=== PATIENT | female | born 1955 | race African-American/Black ===

== ENCOUNTER 2016-12-24 17:23 | Inpatient (IN) | payer MEDICAID, OTHER ==
[~2016-12-24] VITALS: Ht 162.6 cm; Wt 90.7 kg
[~2016-12-24 17:23] MED LIST: APAP PO; ATROVENT 00.5 MG/3 M INH; AZTREONAM1 GM IJ; BENADRYL50 MG PO; BUTALBITAL PO; COZAAR50 MG PO; CYCLOBENZAPRINE10 M7 PO; DILAUDID2 MG PO; DULCOLAX10 MG RC; ELIQUIS5 MG PO; FLONASE NASAL50 MCG NS; LIPITOR20 MG PO; LOPRESSOR50 MG PO; NITRO DUR TD; PEPCID20 MG PO; PROVENTIL2.5 MG/3 M INH; REGLAN10 MG PO; SYNTHROID0.075 MG PO; VALIUM10 MG PO; XARELTO STARTER20 MG PO; [UNRECOGNIZED DRUG - OTHER] PO
[2016-12-24 17:37] VITALS: BP 183/117
--- NOTE | 2016-12-24 20:03 | NUR ---
BIB WHEELCHAIR TO ER BED 2
--- NOTE | 2016-12-24 20:05 | NUR ---
61 Y/O C/O CHEST/BACK PAIN X 3 DAYS ON AND OFF. PT HAS A MANDY AND GTUBE. C/O COUGH WITH YELLOWISH MUCOUS X 3 DAYS WELL. DENIES ANY FEVER. 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 ER MD NOTIFIED.
[2016-12-24] MEDS ORDERED: NITROGLYCERIN 2% 1 GM PKT TP ONE (20:25)
[2016-12-24] MEDS ORDERED: ASPIRIN 325 MG TAB PO ONE (20:25)
[2016-12-24] MEDS ORDERED: HYDROmorphone 1 MG/ML AMP IVP ONE (20:25)
[2016-12-24] MEDS ORDERED: ENALAPRILAT 2.5 MG/2 ML VIAL IVP ONE (20:45)
--- NOTE | 2016-12-24 21:29 | NUR ---
OBTAINED SPUTUM SAMPLE AND SENT TO LAB
[2016-12-24] MEDS ORDERED: HYDROmorphone 1 MG/ML AMP IM ONE (21:30)
--- NOTE | 2016-12-24 21:40 | NUR ---
UNABLE TO START AN IV LINE ON PATIENT AFTER 4 TRIES. PER ER OK TO TRANSFER PT WITHOU IV, CENTRAL LINE WILL BE INITIATED ON FLOOR.
[2016-12-24] MEDS: NACL 0.9% 1,000 ML IV SCH (22:16)
[2016-12-24] MEDS ORDERED: HYDROcodone/APAP 5/325 MG 1 TAB TAB PO PRN (22:20)
[2016-12-24] MEDS ORDERED: ONDANSETRON 4 MG/2 ML VIAL IVP PRN (22:20)
[2016-12-24] MEDS ORDERED: HYDROmorphone 1 MG/ML AMP IVP PRN (22:20)
[2016-12-24] MEDS ORDERED: ALBUTEROL 0.083% 2.5 MG/3 ML NEBU INH PRN (22:25)
[2016-12-24] MEDS ORDERED: BISACODYL 10 MG SUPP RC PRN (22:25)
[2016-12-24] MEDS ORDERED: FLUTICASONE NASAL 50 MCG/ACTUATION 16 GM BTL NS PRN (22:25)
[2016-12-24] MEDS ORDERED: SIMETHICONE 40 MG/0.6 ML PO SCH (22:25)
[2016-12-24] MEDS ORDERED: APAP/BUTAL/CAFF 325/50/40 MG 1 TAB PO PRN (22:25)
[2016-12-24] MEDS ORDERED: IPRATROPIUM 0.02% 0.5 MG/2.5 ML NEBU INH PRN (22:25)
[2016-12-24] MEDS ORDERED: diphenhydrAMINE 50 MG CAP PO PRN (22:25)
--- NOTE | 2016-12-24 22:28 | NUR ---
Patient will be admitted to care of [facility]. Admited to TELEMETRY. Will go to room 112B. Belongings list completed. Report to ROCIO HEALY.
[2016-12-24] MEDS ORDERED: EMLA TP (22:33)
[2016-12-24] MEDS ORDERED: DEXILANT60 MG PO (22:33)
[2016-12-24] MEDS ORDERED: DIOVAN160 M1 PO (22:33)
[2016-12-24] MEDS ORDERED: ISOSORBIDE MONO30 MG PO (22:33)
[2016-12-24 23:00] VITALS: BP 140/70
--- NOTE | 2016-12-24 23:00 | NUR ---
RECEIVED PT FROM ER VIA [facility] PT IS AAOX4 AMBULATORY DENIES ANY CHEST PAIN ON ADMISSION TRACH TO RA 100% O2 SAT SKIN IS INTACT , DRYNESS, LIGHT REDNESS AROUND G TUBE G TUBE ZERO RESIDUAL NOT IV ACCESS MRSA NARES TAKEN AND SENT TO LAB ON TELEMETRY SR PT IS ORIENTED TO THE FLOOR CALL LIGHT WITHIN REACH ', PT COOPERATIVE INITIAL ASSESSMENT DONE
--- NOTE | 2016-12-24 23:19 | NUR ---
RCFaiza'D PT FROM ER. PT HAS PORTEX 8 UNCUFFED. PT IS ON ROOM AIR SAT 100. WILL CONTINUE TO MONITOR. Addendum: 12/24/16 at 2322 by Benigno Montilla RT RN AT BEDSIDE
[2016-12-25] VITALS: BP 140/70
--- NOTE | 2016-12-25 02:00 | NUR ---
PT ON TELMETRY SR TRACH AT ROOM AIR NOT SOB NOTED REPOSITIONED Q2H
[2016-12-25 04:00] VITALS: BP 90/53
--- NOTE | 2016-12-25 04:00 | NUR ---
SPONGE BATH GIVEN, LINEN CHANGED AMBULATES TO THE RESTROOM VOIDING WELL ON TELE SR
[2016-12-25] MEDS: LEVOTHYROXINE 0.075 MG TAB PO SCH (05:33)
--- NOTE | 2016-12-25 05:43 | NUR ---
URINE SENT TO LAB, PT REFUSED TO SING CONSENT FOR PICC LINE
--- NOTE | 2016-12-25 06:28 | NUR ---
PT REFUSED TO SING INSERTION PICC FOURDRINIER MACHINE TENDER WILL BE NOTIFY
--- NOTE | 2016-12-25 07:21 | NUR ---
RECEIVED PT FROM ROCIO HEALY ASLEEP BUT EASILY AWAKENED. AAOX4, WITH TRACH AND GTUBE, NO IV ACCESS AT THIS TIME. NO S/S OF RESPIRATORY DISTRESS OR DISCOMFORT. INITIAL ASSESSMENT DONE, SAFETY PRECAUTIONS ENFORCED, PT VERBALIZED UNDERSTANDING. CALL LIGHT WITHIN REACH, WILL CONTINUE TO MONITOR.
[2016-12-25 08:00] VITALS: BP 128/69
[2016-12-25] MEDS: FAMOTIDINE 20 MG TAB PO SCH ×2 (08:27→21:56)
[2016-12-25] MEDS: DIAZEPAM 5 MG TAB PO SCH ×2 (08:27→21:57)
[2016-12-25] MEDS: ASPIRIN 81 MG TAB.CHEW PO SCH (08:28)
[2016-12-25] MEDS ORDERED: LISINOPRIL 10 MG TAB PO SCH (09:00)
[2016-12-25] MEDS ORDERED: APIXABAN 2.5 MG TAB PO SCH (09:00)
[2016-12-25] MEDS ORDERED: LOSARTAN 50 MG TAB PO SCH (09:00)
[2016-12-25] MEDS ORDERED: CYCLOBENZAPRINE 10 MG TAB PO SCH (09:00)
[2016-12-25] MEDS ORDERED: METOCLOPRAMIDE 10 MG TAB PO SCH (09:00)
--- NOTE | 2016-12-25 09:00 | NUR ---
DUE MEDS GIVEN, PT TOLERATED WELL. ALL NEEDS MET AT THIS TIME. CALL LIGHT WITHIN REACH. WILL CONTINUE TO MONITOR.
--- NOTE | 2016-12-25 09:19 | NUR ---
PATIENT HAS BEEN SCREENED AND CATEGORIZED MODERATE NUTRITION RISK. PATIENT WILL BE SEEN WITHIN 3-5 DAYS OF ADMISSION. 12/27/16-12/29/[address]
[2016-12-25] MEDS: NACL 0.9% 1,000 ML IV SCH ×2 (09:23→20:30)
[2016-12-25] MEDS: METOPROLOL 50 MG TAB PO SCH ×2 (09:29→21:00)
[2016-12-25] MEDS: NITROGLYCERIN 0.4 MG/HR PATCH TD SCH (09:36)
[2016-12-25] MEDS ORDERED: SIMETHICONE 40 MG/0.6 ML PO PRN (11:33)
[2016-12-25 12:00] VITALS: BP 115/77
--- NOTE | 2016-12-25 12:00 | NUR ---
PT AWAKE SITTING ON BED WATCHING TV. NO S/S OF RESPIRATORY DISCOMFORT. ALL NEEDS MET AT THIS TIME. CALL LIGHT WITHIN REACH, WILL CONTINUE TO MONITOR.
--- NOTE | 2016-12-25 13:10 | NUR ---
DR POWERS IN THE ROOM WITH THE PT
[2016-12-25] MEDS: LIDOCAINE/PRILOCAINE 2.5% 30 GM TUBE TP SCH ×2 (13:49→16:17)
[2016-12-25] MEDS: HYDROmorphone 2 MG TAB PO PRN (14:05)
--- NOTE | 2016-12-25 15:13 | NUR ---
DR SANDERS IS IN NURSES STATION.
[2016-12-25] MEDS: ALBUTEROL SULFATE/IPRATROPIU 3 ML SOL IH SCH ×3 (15:15→22:58)
[2016-12-25 16:00] VITALS: BP 114/49
--- NOTE | 2016-12-25 16:00 | NUR ---
VS TAKEN, PT IS STABLE. NO S/S OF RESPIRATORY DISCOMFORT. PT AWAKE WATCHING TV RESTING COMFORTABLY. CALL LIGHT WITHIN REACH, WILL CONTINUE TO MONITOR.
--- NOTE | 2016-12-25 17:30 | NUR ---
PT ASLEEP RESTING COMFORTABLY ON BED BUT EASILY AWAKEN. TRACH CARE DONE BY RT. ALL NEEDS MET AT THIS TIME. CALL LIGHT WITHIN REACH, WILL CONTINUE TO MONITOR.
--- NOTE | 2016-12-25 19:07 | NUR ---
ENDORSED PT TO ROCIO HEALY FOR CONTINUITY OF CARE IN STABLE CONDITION.
--- NOTE | 2016-12-25 19:10 | NUR ---
RECEIVED PT FROM YAN RN PT AAOX4 ON TRACH AT ROOM AIR, ON TELEMETRY SR , G TUBE IN PLACE PINK AROUND THE G TUBE NOT IV ACCESS AND PT REFUSED PICC LINE, NOT SOB NOTED, RESPIRATORY THERAPY IS HERE AND ASSIST THE PT
[2016-12-25] MEDS: BUDESONIDE 0.5 MG/2 ML NEBU INH SCH (19:41)
[2016-12-25 20:00] VITALS: BP 110/63
[2016-12-25] MEDS: VALSARTAN 80 MG TAB PO SCH (21:00)
[2016-12-25] MEDS: ATORVASTATIN 20 MG TAB PO SCH (21:51)
[2016-12-25] MEDS ORDERED: CLINDAMYCIN 600 MG in DEXTROSE 5% 50 ML IV SCH (22:00)
--- NOTE | 2016-12-25 22:16 | NUR ---
PT SLEEPING , ON TELE SR NTO SOB NOTED
[2016-12-25] MEDS ORDERED: LEVOFLOXACIN 500 MG TAB PO SCH (22:20)
[2016-12-25] MEDS ORDERED: CLINDAMYCIN 150 MG CAP PO SCH (22:20)
[2016-12-25] MEDS: CLINDAMYCIN 150 MG CAP PO SCH (22:28)
[2016-12-25] MEDS ORDERED: LEVOFLOXACIN 500 MG/D5W PREMIX 100 ML IV SCH (23:00)
[2016-12-26] VITALS: BP 107/66
--- NOTE | 2016-12-26 00:43 | NUR ---
REPOSITIONED Q2H ON TELE SR SLEEPING
[2016-12-26] MEDS: ALBUTEROL SULFATE/IPRATROPIU 3 ML SOL IH SCH ×6 (02:44→23:37)
[2016-12-26 04:00] VITALS: BP 109/68
--- NOTE | 2016-12-26 04:00 | NUR ---
SPONGE BATH GIVEN , LINEN CHANGED ON TELEMETRY SR, TRACH TO ROOM AIR NOT SOB NOTED
[2016-12-26] MEDS: LEVOTHYROXINE 0.075 MG TAB PO SCH (05:18)
[2016-12-26] MEDS: PANTOPRAZOLE 40 MG TABEC PO SCH (05:20)
[2016-12-26] MEDS: CLINDAMYCIN 150 MG CAP PO SCH ×2 (05:22→20:35)
--- NOTE | 2016-12-26 06:09 | NUR ---
VOIDING WELL AND TOLERATED WELL PO MED , ON TELEMETRY SR
--- NOTE | 2016-12-26 07:10 | NUR ---
RECEIVED REPORT AT PT BEDSIDE. PT RESTING IN BED. C/O HEADACHE, WILL MEDICATE ORDERED. DENIES FEELING SOB. CALL LIGHT WITHIN REACH. AAOX4. HAS TRACH TO ROOM AIR. HAS G-TUBE, DRESSING DRY AT THIS TIME. WILL CONTINUE TO MONITOR.
[2016-12-26] MEDS: BUDESONIDE 0.5 MG/2 ML NEBU INH SCH ×2 (07:11→20:03)
[2016-12-26] MEDS: NACL 0.9% 1,000 ML IV SCH ×2 (07:37→18:44)
[2016-12-26 08:00] VITALS: BP 111/62
[2016-12-26] MEDS: DIAZEPAM 5 MG TAB PO SCH ×2 (08:23→20:34)
[2016-12-26] MEDS: ISOSORBIDE MONONITRATE 30 MG TABER PO SCH (08:24)
[2016-12-26] MEDS: FAMOTIDINE 20 MG TAB PO SCH ×2 (08:24→20:34)
[2016-12-26] MEDS: ASPIRIN 81 MG TAB.CHEW PO SCH (08:25)
[2016-12-26] MEDS: HYDROmorphone 2 MG TAB PO PRN ×2 (08:25→20:45)
[2016-12-26] MEDS: LEVOFLOXACIN 500 MG TAB PO SCH (08:25)
[2016-12-26] MEDS: LIDOCAINE/PRILOCAINE 2.5% 30 GM TUBE TP SCH ×3 (08:32→17:49)
[2016-12-26] MEDS: RIVAROXABAN 10 MG TAB PO SCH (08:34)
[2016-12-26] MEDS: NITROGLYCERIN 0.4 MG/HR PATCH TD SCH (08:34)
[2016-12-26] MEDS: VALSARTAN 80 MG TAB PO SCH ×2 (08:44→21:00)
[2016-12-26] MEDS: METOPROLOL 50 MG TAB PO SCH ×2 (08:44→21:00)
--- NOTE | 2016-12-26 09:00 | NUR ---
PT TOLERATED AM MEDS. PT SEEN BY. DR. DIEZ, PT NOTIFIED MD OF MIGRAINE HEADACHES. MD TO ORDER.
[2016-12-26 12:00] VITALS: BP 103/80
[2016-12-26] MEDS ORDERED: SUMAtriptan 25 MG TAB PO SCH (12:00)
--- NOTE | 2016-12-26 12:08 | NUR ---
PT PLACED ON COOL AEROSOL 28%. WILL CONTINUE TO MONITOR.
--- NOTE | 2016-12-26 13:11 | NUR ---
PT RESTING IN BED. DENIES DISCOMFORT AT THIS TIME. NO S/S OF DISTRESS NOTED. CALL LIGHT WITHIN REACH.
[2016-12-26] MEDS ORDERED: ACETAMINOPHEN 325 MG TAB PO PRN (15:30)
--- NOTE | 2016-12-26 15:37 | NUR ---
HD NURSE AT BEDSIDE. BP 68/36, NO S/S OF DISTRESS. MADE AWARE BY DIALYSIS NURSE, NO NEW ORDERS. Addendum: 12/26/16 at 1609 by Juan Jose Hernandez RN WRONG PATIENT.
[2016-12-26 16:00] VITALS: BP 129/83
[2016-12-26] MEDS: MUPIROCIN 2% OINT 22 GM TUBE TP SCH (16:00)
[2016-12-26] MEDS: CHLORHEXADINE GLUC 2% CLOTH TP SCH (16:00)
--- NOTE | 2016-12-26 17:34 | NUR ---
*PT NOTES* RECEIVED MD ORDER FOR PT EVALUATION. ATTEMPT MADE TO SEE PATIENT AFTER CLEARANCE RECEIVED. PATIENT REFUSED SERVICE DUE TO PELVIC/LOW BACK PAIN. STATED THE MEDICATION DID NOT HELP AND THAT SHE MIGHT "FALL" IF SHE GOT UP AT THIS TIME. DISCUSSED WITH PATIENT THE SIGNIFICANCE/EFFECTS OF PROLONGED BED REST, HOWEVER, ALTHOUGH PATIENT UNDERSTOOD, STILL REFUSED. TYLENOL WAS GIVEN TO PATIENT EARLIER. WILL ATTEMPT NEXT SERVICE DAY. RN AWARE OF OUTCOME/ATTEMPT. PVE.
--- NOTE | 2016-12-26 18:00 | NUR ---
PT RESTING IN BED. ALL NEEDS MET. NO S/S OF ACUTE DISTRESS.
--- NOTE | 2016-12-26 19:18 | NUR ---
ENDORSED PLAN OF CARE TO WHOLESALE PARTS SALESPERSON ROYER AT PT BEDSIDE. NO S/S OF ACUTE DISTRESS NOTED.
--- NOTE | 2016-12-26 19:20 | NUR ---
PT IS CURRENTLY AWAKE ALERT ABLE TO MAKE NEEDS KNOWN.PT DENIES ANY CHEST PAIN OR SOB AT THIS TIME HAS A TRACH AND IS CURRENTLY ON 21% COOL AEROSOL PER RESP THERAPIST DOUGLAS.NEEDS MET AND CALL LIGHT WITHIN REACH.
[2016-12-26 20:00] VITALS: BP 101/68
[2016-12-26] MEDS: ATORVASTATIN 20 MG TAB PO SCH (20:34)
--- NOTE | 2016-12-26 20:35 | NUR ---
I GAVE THE PATIENT HER MEDICATION EXPLAINED WHAT EACH MEDICATION IS FOR.I OFFERED TO CRUSH HER MEDS PT REFUSES PT STATES,"I CAN TAKE MY PILLS AND I TAKE THEM TOGETHER I DON'T TAKE THEM SEPARATELY."I PROVIDED THE PATIENT WITH PLENTY OF WATER AND MADE SURE THAT SHE SWALLOWED ALL HER PILLS.I GAVE HER MORE WATER AND ALSO A CUP OF ICE.FAMILY VISITING PATIENT VERY COMPLIANT THEY WORE GOWNS AND MASKS.WILL CONTINUE TO MONITOR.
--- NOTE | 2016-12-26 22:00 | NUR ---
Patient's Plan of Care was discussed and reviewed with CORRECTIONAL OFFICER CAPTAIN: ROYER ENRIQUEZ
--- NOTE | 2016-12-26 22:56 | NUR ---
I MADE ROUNDS AND CHECKED ON THE PATIENT STATES," IM IS DOING FINE." THEN SHE ASKED FOR MORE ICE CHIPS AND I GAVE HER MORE ICE CHIPS.WILL CONTINUE TO OBSERVE.
--- NOTE | 2016-12-27 00:04 | NUR ---
ROUNDS DONE PT RESTING IN BED PT REQUESTS FOR SLEEPING PILL,MD HILARIO EXCHANGE WILL BE CALLED MESSAGE WILL BE LEFT.
[2016-12-27 00:07] VITALS: BP 116/66
[2016-12-27] MEDS ORDERED: ZOLPIDEM 5 MG TAB PO PRN (00:15)
--- NOTE | 2016-12-27 02:56 | NUR ---
PT SLEEPING IN BED IN NO DISTRESS WILL CONTINUE TO MONITOR.CALL LIGHT WITHIN REACH.
[2016-12-27] MEDS: ALBUTEROL SULFATE/IPRATROPIU 3 ML SOL IH SCH ×6 (03:46→23:00)
[2016-12-27 04:00] VITALS: BP 96/58
--- NOTE | 2016-12-27 04:00 | NUR ---
PT SLEEPING IN BED DENIES PAIN AND DISCOMFORT.CALL LIGHT WITHIN REACH.
[2016-12-27] MEDS: NACL 0.9% 1,000 ML IV SCH ×2 (05:51→16:58)
[2016-12-27] MEDS: CLINDAMYCIN 150 MG CAP PO SCH ×3 (06:28→21:00)
[2016-12-27] MEDS: PANTOPRAZOLE 40 MG TABEC PO SCH (06:33)
[2016-12-27] MEDS: LEVOTHYROXINE 0.075 MG TAB PO SCH (06:33)
--- NOTE | 2016-12-27 06:35 | NUR ---
PT TOOK HER MEDICATIONS AND I MADE SURE SHE SWALLOWED THEM,PT UPSET PT STATES,"I FEEL LIKE IM BEING TORTURED EVERYTIME THEY COME TO PRICK ME WITH THE NEEDLES THEY CAN NEVER FIND A VEIN."PT STATES,"PLEASE LEAVE ME ALONE AND GO AWAY I WANT TO CONTINUE TO GET SOME SLEEP."CALL LIGHT WITHIN REACH.NO COMPLAINS OF PAIN OR DISCOMFORT THIS MORNING.
--- NOTE | 2016-12-27 07:17 | NUR ---
PT STABLE REPORT ENDORSED TO ROCIO GONZALEZ.
--- NOTE | 2016-12-27 07:18 | NUR ---
PT ALERT AND ORIENTED X4. BREATHING EVENLY AND UNLABORED. NO SIGNS OF ACUTE DISTRESS. SKIN IS WARM AND DRY. NO SIGNS OF ANY BOWEL/BLADDER DISCOMFORT. DENIES OF ANY PAIN OR DISCOMFORT AT THIS TIME. ALL NEEDS ATTENDED, CONTACT AND SAFETY PRECAUTIONS MAINTAINED. CALL LIGHT WITHIN REACH. NO IV ACCESS PER MULTIPLE DRUM SANDER NURSE MD IS AWARE. PT REFUSED REINSERTION OR PICC PLACEMENT RISKS AND BENEFITS EXPLAINED. PT VERBALIZED UNDERSTANDING.
[2016-12-27] MEDS: BUDESONIDE 0.5 MG/2 ML NEBU INH SCH ×2 (07:57→20:28)
[2016-12-27 08:00] VITALS: BP 111/73
[2016-12-27] MEDS: ASPIRIN 81 MG TAB.CHEW PO SCH (09:00)
[2016-12-27] MEDS: VALSARTAN 80 MG TAB PO SCH ×2 (09:00→21:00)
[2016-12-27] MEDS ORDERED: MUPIROCIN 2% OINT 22 GM TUBE TP SCH (09:00)
[2016-12-27] MEDS: ISOSORBIDE MONONITRATE 30 MG TABER PO SCH (09:00)
[2016-12-27] MEDS: DIAZEPAM 5 MG TAB PO SCH ×2 (09:00→21:00)
[2016-12-27] MEDS: FAMOTIDINE 20 MG TAB PO SCH ×2 (09:00→21:00)
[2016-12-27] MEDS: METOPROLOL 50 MG TAB PO SCH ×2 (09:00→21:00)
[2016-12-27] MEDS: LEVOFLOXACIN 500 MG TAB PO SCH (09:00)
[2016-12-27] MEDS: RIVAROXABAN 10 MG TAB PO SCH (09:00)
[2016-12-27] MEDS: NITROGLYCERIN 0.4 MG/HR PATCH TD SCH (09:31)
[2016-12-27] MEDS: LIDOCAINE/PRILOCAINE 2.5% 30 GM TUBE TP SCH ×3 (09:31→17:35)
--- NOTE | 2016-12-27 10:00 | NUR ---
PT REFUSING PO MEDS, RISKS AND BENEFITS EXPLAINED. MADE AWARE.
[2016-12-27 12:00] VITALS: BP 114/63
--- NOTE | 2016-12-27 13:20 | NUR ---
MD SPOKE WITH PT ABOUT NON-COMPLIANCE ON IV INSERTION AND OR PICC LINE INSERTION. RISKS AND BENEFITS EXPLAINED BY MD AT BEDSIDE. PT NEEDS REINFORCEMENT AND STILL REFUSED PROCEDURE.
--- NOTE | 2016-12-27 13:40 | NUR ---
FAXED [facility] FOR A COPY OF MEDICAL RECORDS. PT GAVE CONSENT TO OBTAIN.
[2016-12-27 16:00] VITALS: BP 132/85
[2016-12-27] MEDS: MUPIROCIN 2% OINT 22 GM TUBE TP SCH (16:00)
[2016-12-27] MEDS: CHLORHEXADINE GLUC 2% CLOTH TP SCH (16:00)
--- NOTE | 2016-12-27 18:20 | NUR ---
WAS SEEN BY DR. MAHAN, SPOKE WITH PT AT BEDSIDE ALONGSIDE WITH DR. DEXTER PER DR. MAHAN, PT DOES NOT REQUIRE ANTIBIOTICS AT THIS TIME. MAY D/C ON TRANSIT PLANNING MANAGER STANDPOINT PT IS AWARE. CONTINUE TO MONITOR.
--- NOTE | 2016-12-27 18:45 | NUR ---
PT REQUESTED TO BE DISCHARGED TODAY. DR DEXTER MADE AWARE, VERBALIZED PT CAN SIGN AMA IF SHE WANTS TO GO HOME. PT REFUSED TO SIGN AMA.
--- NOTE | 2016-12-27 19:00 | NUR ---
UNABLE TO CONTACT DR. DEXTER TO BE MADE AWARE PT REFUSED TO SIGN AMA. REQUESTS TO BE DISCHARGE TODAY. PAGED DR. HILARIO, AWAITING FOR RESPONSE.
--- NOTE | 2016-12-27 19:03 | NUR ---
PT AWAKE AND RESPONSIVE, NO SIGNS OF ACUTE DISTRESS. ENDORSED TO ONCOMING FIRE PREVENTION OFFICER NURSE FOR CONTINUITY OF CARE.
--- NOTE | 2016-12-27 19:10 | NUR ---
DR. DIEZ BEAM DYER RECESSED VAT FOR DR. BOSS. AWAITING FOR RESPONSE. ENDORSED TO RISK CONTROL FIELD REPRESENTATIVE NURSE.
--- NOTE | 2016-12-27 19:20 | NUR ---
RECEIVED REPORT FROM DAY RN AT BEDSIDE. PATIENT IS AAO X4. PATIENT HAS TRACH WITH 21% O2. PATIENT SKIN INTACT. PER DAY RN, PATIENT WANTED TO BE DISCHARGED TODAY OR WAS GIVEN OPTION TO SIGN OUT AMA, PATIENT STATED SHE WILL STAY THE NIGHT. PATIENT APPEARS TO BE UPSET, PATIENT HAS NO IV ACCESS AND STATED SHE DID NOT WANT ANYONE TO POKE HER ANYMORE AND REFUSED TO HAVE A LINE INSERTED. DISCUSSED PLAN OF CARE WITH PATIENT, PATIENT VERBALIZED UNDERSTANDING. CALL LIGHT WITHIN REACH. WILL CONTINUE TO MONITOR.
[2016-12-27 20:00] VITALS: BP 133/94
[2016-12-27] MEDS: ATORVASTATIN 20 MG TAB PO SCH (21:00)
--- NOTE | 2016-12-27 21:30 | NUR ---
PATIENT REFUSED MEDS BECAUSE SHE STATED THAT SHE CANNOT SWALLOW WELL BECAUSE HER TRACH IS TOO TIGHT AND SHE HAS NOT BEEN ABLE TO EAT MUCH TODAY. PATIENT CONTINUED TO THEN COVER HER HEAD WITH HER BLANKETS. CALL LIGHT WITHIN REACH. WILL CONTINUE TO MONITOR.
--- NOTE | 2016-12-27 23:00 | NUR ---
PATIENT SLEEPING, NO SOB OR SIGN OF DISTRESS, CALL LIGHT WITHIN REACH. WILL CONTINUE TO MONITOR.
[2016-12-28] VITALS: BP 113/61
--- NOTE | 2016-12-28 01:32 | NUR ---
PATIENT SLEEPING, NO SOB OR SIGN OF DISTRESS, CALL LIGHT WITHIN REACH. WILL CONTINUE TO MONITOR. VITAL SIGNS STABLE.
--- NOTE | 2016-12-28 02:40 | NUR ---
PATIENT SLEEPING, NO SOB OR SIGN OF DISTRESS, CALL LIGHT WITHIN REACH. WILL CONTINUE TO MONITOR.
[2016-12-28] MEDS: ALBUTEROL SULFATE/IPRATROPIU 3 ML SOL IH SCH ×6 (03:58→23:54)
[2016-12-28 04:00] VITALS: BP 104/54
[2016-12-28] MEDS: NACL 0.9% 1,000 ML IV SCH ×2 (04:05→15:12)
--- NOTE | 2016-12-28 04:30 | NUR ---
PATIENT SLEEPING, VITAL SIGNS STABLE, NO SOB OR SIGN OF DISTRESS, CALL LIGHT WITHIN REACH. WILL CONTINUE TO MONITOR.
[2016-12-28] MEDS: CLINDAMYCIN 150 MG CAP PO SCH ×2 (05:00→13:00)
[2016-12-28] MEDS: PANTOPRAZOLE 40 MG TABEC PO SCH (06:30)
[2016-12-28] MEDS: LEVOTHYROXINE 0.075 MG TAB PO SCH (06:30)
--- NOTE | 2016-12-28 06:30 | NUR ---
PATIENT REFUSED MORNING MEDS, STATES BECAUSE SHE CANT SWALLOW, CALL LIGHT WITHIN REACH. WILL CONTINUE TO MONITOR.
[2016-12-28] MEDS: BUDESONIDE 0.5 MG/2 ML NEBU INH SCH ×2 (07:02→18:39)
--- NOTE | 2016-12-28 07:25 | NUR ---
ENDORSED PATIENT TO DAY RN AT BEDSIDE, PATIENT IN STABLE CONDITION.
--- NOTE | 2016-12-28 07:26 | NUR ---
RECEIVED REPORT FROM ROCIO MACK. PT IS SLEEPING BUT EASILY AWAKEN, AAO X4, SKIN INTACT, NO IV ACCESS, INITIAL ASSESSMENT DONE, NO S/S OF RESPIRATORY DISTRESS OR DISCOMFORT NOTED, DISCUSSED PLAN OF CARE, PT VERBALIZED UNDERSTANDING, SAFETY/FALL PRECAUTION ENFORCED, CALL LIGHT WITHIN REACH, WILL CONTINUE TO MONITOR.
--- NOTE | 2016-12-28 07:33 | NUR ---
ENDORSED PT TO ROCIO HEALY FOR CONTINUITY OF CARE. PT IS STABLE AT THIS TIME. Addendum: 12/28/16 at 1940 by Elías Mckeon RN WRONG TIME.
[2016-12-28 07:57] VITALS: BP 93/60
[2016-12-28] MEDS: METOPROLOL 50 MG TAB PO SCH (09:00)
[2016-12-28] MEDS: FAMOTIDINE 20 MG TAB PO SCH (09:00)
[2016-12-28] MEDS: NITROGLYCERIN 0.4 MG/HR PATCH TD SCH (09:00)
[2016-12-28] MEDS: ASPIRIN 81 MG TAB.CHEW PO SCH (09:00)
[2016-12-28] MEDS: VALSARTAN 80 MG TAB PO SCH (09:00)
[2016-12-28] MEDS: RIVAROXABAN 10 MG TAB PO SCH (09:00)
[2016-12-28] MEDS: DIAZEPAM 5 MG TAB PO SCH (09:00)
[2016-12-28] MEDS: ISOSORBIDE MONONITRATE 30 MG TABER PO SCH (09:00)
[2016-12-28] MEDS: LIDOCAINE/PRILOCAINE 2.5% 30 GM TUBE TP SCH ×3 (09:17→16:17)
--- NOTE | 2016-12-28 09:18 | NUR ---
DUE MEDS NOT GIVEN, PT REFUSED MEDS, PT STATED THAT SHE IS UNABLE TO SWALLOW, ALL NEEDS MET AT THIS TIME, CALL LIGHT WITHIN REACH, WILL CONTINUE TO MONITOR.
--- NOTE | 2016-12-28 10:51 | NUR ---
PT NOTE 953 MEDICAL CHART REVIEWED. Pt WAS CLEARED FOR PT PER RN. Pt REFUSED TO PARTICIPATE W/PT EVAL, STATES THAT SHE IS IN PAIN DUE TO FIBROMYALGIA AND COULD NOT SWALLOW PILLS, NO ACCESS FOR IV EITHER. Pt WAS EDUCATED ON BENEFITS OF PHYSICAL THERAPY, ENCOURAGED TO AT LEAST PARTICIPATE IN BED MOBILITY OR SITTING EOB; Pt STATES, "YOU DON'T UNDERSTAND BECAUSE YOU DON'T HAVE WHAT I HAVE." RN NOTIFIED REGARDING REFUSAL. WILL TRY TO FOLLOW UP TOMORROW. PVE(1)
--- NOTE | 2016-12-28 11:30 | NUR ---
SPEECH THERAPIST AT BEDSIDE SWALLOW EVAL IN PROGRESS.
--- NOTE | 2016-12-28 11:44 | NUR ---
HEATING AND REFRIGERATION INSPECTOR note (bedside swallow evaluation completed) 10:45-11:30. Bedside swallow evaluation completed, please see report for details. HEATING AND REFRIGERATION INSPECTOR provided pt with education regarding purpose of evaluation and rationale for recommendations at this time. Pt verbalized understanding and agreement with recommendations at this time. Recommend: 1) NPO (oral cares only) 2) consider alternative method(s) of nutrition/hydration/medication, as appropriate (pt has G-tube in place) 3) no further HEATING AND REFRIGERATION INSPECTOR intervention indicated at this time. Physician to reorder HEATING AND REFRIGERATION INSPECTOR intervention once pt's throat inflamation has subsided and pt able to swallow her saliva comfortably/easily, as appropriate. HEATING AND REFRIGERATION INSPECTOR d/w RN (Elías) following evaluation. G-codes: [id number] [id number] TIMUR NOMS level 1: pt is not able to swallow anything safely by mouth at this time.
[2016-12-28 12:00] VITALS: BP 121/80
--- NOTE | 2016-12-28 13:00 | NUR ---
DUE MED NOT GIVEN DUE TO PT NOT ABLE TO SWALLOW. NO S/S OF RESPIRATORY DISCOMFORT, CALL LIGHT WITHIN REACH, WILL CONTINUE TO MONITOR.
[2016-12-28] MEDS ORDERED: APAP/BUTAL/CAFF 325/50/40 MG 1 TAB GT PRN (14:25)
[2016-12-28] MEDS ORDERED: HYDROcodone/APAP 5/325 MG 1 TAB TAB GT PRN (14:25)
[2016-12-28] MEDS ORDERED: SIMETHICONE 40 MG/0.6 ML GT PRN (14:25)
[2016-12-28] MEDS ORDERED: ACETAMINOPHEN 325 MG TAB GT PRN (14:25)
[2016-12-28] MEDS ORDERED: ZOLPIDEM 5 MG TAB GT PRN (14:25)
[2016-12-28 16:00] VITALS: BP 120/76
[2016-12-28] MEDS: MUPIROCIN 2% OINT 22 GM TUBE TP SCH (16:15)
[2016-12-28] MEDS: CHLORHEXADINE GLUC 2% CLOTH TP SCH (16:16)
--- NOTE | 2016-12-28 17:30 | NUR ---
XRAY OF ABDOMEN FOR GTUBE PLACEMENT DONE, PT TOLERATED WELL. NO S/S OF RESPIRATORY DISTRESS OR DISCOMFORT. ALL NEEDS MET AT THIS TIME, CALL LIGHT WITHIN REACH, WILL CONTINUE TO MONITOR.
[2016-12-28] MEDS: HYDROmorphone 2 MG TAB GT PRN (18:44)
--- NOTE | 2016-12-28 19:33 | NUR ---
ENDORSED PT TO ROCIO HEALY FOR CONTINUITY OF CARE. PT IS STABLE AT THIS TIME.
--- NOTE | 2016-12-28 19:34 | NUR ---
RECEIVED PT FROM YAN RN PT IS AAOX4 ON T BAR NOT SOB NOTED, ON TELEMETRY SR G TUBE PATENT, REPOSILTIONED INITIAL ASSESSMENT DONE
[2016-12-28 20:00] VITALS: BP 111/93
[2016-12-28] MEDS ORDERED: ATORVASTATIN 20 MG TAB GT SCH (21:00)
[2016-12-28] MEDS: VALSARTAN 80 MG TAB GT SCH (21:00)
[2016-12-28] MEDS: METOPROLOL 50 MG TAB GT SCH (21:00)
[2016-12-28] MEDS: CLINDAMYCIN 150 MG CAP GT SCH (21:35)
[2016-12-28] MEDS: DIAZEPAM 5 MG TAB GT SCH (21:37)
[2016-12-28] MEDS: FAMOTIDINE 20 MG TAB GT SCH (21:38)
--- NOTE | 2016-12-28 22:58 | NUR ---
AFTER KLPAIN MEDIC GIVENK PT SLEEP QUIET NOT DISTRESS NOTED
[2016-12-29] VITALS: BP 117/72
[2016-12-29] MEDS: HYDROmorphone 2 MG TAB GT PRN ×3 (00:37→14:57)
--- NOTE | 2016-12-29 01:13 | NUR ---
PT ON CLOSE MONITORING ON T BAR COLLAR ON TELEMETRY SR REPOSITIONED Q2H NOT DISTRESS NOTED GETTING SLEEP AFTER PAIN MEDIC GIVEN.
[2016-12-29] MEDS: NACL 0.9% 1,000 ML IV SCH ×2 (02:19→13:26)
[2016-12-29] MEDS: ALBUTEROL SULFATE/IPRATROPIU 3 ML SOL IH SCH ×4 (03:49→16:10)
[2016-12-29 04:00] VITALS: BP 111/74
--- NOTE | 2016-12-29 04:00 | NUR ---
SPONGE BATH GIVEN LINEN CHANGED, ON TELEMETRY SR REPOSITIONED 28% T BAR COLLAR
[2016-12-29] MEDS: CLINDAMYCIN 150 MG CAP GT SCH ×2 (04:44→12:27)
[2016-12-29] MEDS: PANTOPRAZOLE 40 MG TABEC PO SCH (05:35)
--- NOTE | 2016-12-29 06:01 | NUR ---
MEDIC GIVEN ORDER PT REMAIN STABLE NOT DISTRESS NOTED ON TELEMETRY SR
[2016-12-29] MEDS ORDERED: LEVOTHYROXINE 0.075 MG TAB GT SCH (06:30)
--- NOTE | 2016-12-29 07:00 | NUR ---
PT AAOX4 AMBULATORY AND FOUND SITTING ON THE FLOOR NOT SIGNS OF FALLING SHE HELP TO BE SITTING ON THE CHAIR AND WE EXPLAIN THE IMPORTANT TO CALL THE NURSE TO BE ASSISTED , CHARGE NURSE AWARE AND DR HILARIO WAS NOTIFY PT IS ENDORSED TO YAN CHAN FOR CONTINUITY OF CARE
--- NOTE | 2016-12-29 07:10 | NUR ---
PT IS NOT COMPLAINT WITH THE TREATMENT VERBALIZED SHE DOES NOT WANT G TUBE FEEDING, DR HILARIO WAS NOTIFY
--- NOTE | 2016-12-29 07:12 | NUR ---
dr mattson is here making round with residents and see the pt on stable condition
--- NOTE | 2016-12-29 07:20 | NUR ---
RECEIVED PT FROM ROCIO HEALY AWAKE LYING ON BED, NO S/S OF RESPIRATORY DISTRESS OR DISCOMFORT. AAOX4, WITH TRACHEOSTOMY INTACT, GTUBE PATENT AND INTACT. INITIAL ASSESSMENT DONE. DISCUSSED PLAN OF CARE, PT VERBALIZED UNDERSTANDING. DR HILARIO IN THE ROOM TO SEE THE PT. CALL LIGHT WITHIN REACH, WILL CONTINUE TO MONITOR.
[2016-12-29] MEDS: BUDESONIDE 0.5 MG/2 ML NEBU INH SCH (07:24)
--- NOTE | 2016-12-29 07:31 | NUR ---
CHANGE INNER CANNULA PORTEX 8 TRACH TIE GAUZE WITHOUT INCIDENT PT ON 28 COOL AEROSOL DRAIN H20 BAG PT TRACH PORTEX 8 IS SECURE PT REFUSES SX
[2016-12-29 08:00] VITALS: BP 110/76
[2016-12-29] MEDS ORDERED: DIOVAN160 M1 GT/PO (08:23)
[2016-12-29] MEDS ORDERED: SYNTHROID0.075 MG GT/PO (08:23)
[2016-12-29] MEDS ORDERED: DILAUDID2 MG GT/PO (08:23)
[2016-12-29] MEDS ORDERED: VALIUM10 MG GT/PO (08:23)
[2016-12-29] MEDS ORDERED: XARELTO STARTER20 MG GT/PO (08:23)
[2016-12-29] MEDS ORDERED: PROTONIX40 MG/Pack PO (08:23)
[2016-12-29] MEDS ORDERED: ISORDIL10 M1 GT/PO (08:24)
[2016-12-29] MEDS: NITROGLYCERIN 0.4 MG/HR PATCH TD SCH (09:00)
[2016-12-29] MEDS ORDERED: ASPIRIN 81 MG TAB.CHEW GT SCH (09:00)
[2016-12-29] MEDS: ISOSORBIDE MONONITRATE 30 MG TABER PO SCH (09:00)
[2016-12-29] MEDS: METOPROLOL 50 MG TAB GT SCH (09:00)
[2016-12-29] MEDS: LIDOCAINE/PRILOCAINE 2.5% 30 GM TUBE TP SCH ×3 (09:00→17:00)
[2016-12-29] MEDS: VALSARTAN 80 MG TAB GT SCH (09:00)
[2016-12-29] MEDS ORDERED: RIVAROXABAN 10 MG TAB GT SCH (09:00)
[2016-12-29] MEDS: FAMOTIDINE 20 MG TAB GT SCH (09:32)
[2016-12-29] MEDS: DIAZEPAM 5 MG TAB GT SCH (09:32)
--- NOTE | 2016-12-29 09:35 | NUR ---
DUE MEDS GIVEN VIA GTUBE, PT TOLERATED WELL. BP MEDS HELD DUE TO DECREASED BP. CALL LIGHT WITHIN REACH, WILL CONTINUE TO MONITOR.
--- NOTE | 2016-12-29 10:00 | NUR ---
PT IN THE ROOM WITH THE PATIENT DOING LEG EXERCISES. PATIENT TOLERATED WELL. WILL CONTINUE TO MONITOR.
--- NOTE | 2016-12-29 10:13 | NUR ---
SS NOTE: I SPOKE WITH LILIAN FROM [facility] AND SHE STATED THAT THEY DID NOT START SERVICES WITH PT DURING LAST ADMISSION BECAUSE PT WAS HOSPITALIZED AFTER SHE WAS DISCHARGED FROM [facility] IN 10/14. SHE ALSO STATED THAT PT HAS AN OPEN CASE WITH [facility] ([phone]). I SPOKE WITH LIZBETH FROM [facility] (C:[phone], F: [phone]) AND SHE STATED THAT THEY SEE PT DAILY FOR TRACH CARE. SHE ALSO STATED THAT THEY STARTED SERVICE WITH PT ON 11/03/17 WHEN PT WAS DISCHARGED FROM [facility]. SHE REPORTED THAT DR. ASHANTI NAILS SIGNS PT'S HOME HEALTH ORDERS. SHE ALSO REPORTED THAT THEY CAN FOLLOW UP WITH PT ONCE SHE IS READY FOR DISCHARGE.
--- NOTE | 2016-12-29 11:32 | NUR ---
PT SITTING ON BED WATCHING TV. NO S/S OF RESPIRATORY DISCOMFORT. ALL NEEDS MET AT THIS TIME, CALL LIGHT WITHIN REACH, WILL CONTINUE TO MONITOR.
[2016-12-29 12:00] VITALS: BP 125/89
--- NOTE | 2016-12-29 12:20 | NUR ---
PT REFUSED CLINDAMYCIN, INFORMED DR. HEDRICK. NO NEW ORDERS. PT SITTING ON BED AWAKE USING HER PHONE. CALL LIGHT WITHIN REACH, WILL CONTINUE TO MONITOR.
--- NOTE | 2016-12-29 12:29 | NUR ---
12/29/16 RD INITIAL ASSESSMENT COMPLETED PLEASE REFER TO NUTRITION ASSESSMENT UNDER CARE ACTIVITY FOR ESTIMATED NUTRITIONAL NEEDS. RD RECOMMENDATIONS: 1. WHEN MEDICALLY APPROPRIATE CONSIDER INITIATING NUTRITION SUPPORT FIBERSOURCE AT 10 ML/HR AND ADVANCE TOLERATED TO 55 ML/HR VIA GTUBE --GOAL OF 55 ML/HR WILL PROVIDE 1320 ML TOTAL VOLUME, 1584 KCAL, 71 GM PROTEIN TO MEET 100% OF PT ESTIMATED KCAL AND PROTEIN NEEDS 2. BOLUS TUBE FEEDING RECOMMENDATIONS: FIBERSOURCE 1 250 ML CAN Q3H FOR 5 TOTAL CANS/DAY. WILL PROVIDE 1250 ML TOTAL VOLUME, 1500 KCAL, 66 GM PROTEIN TO MEET 100% OF PT ESTIMATED KCAL AND PROTEIN NEEDS 3. RD WILL F/U 2-3 DAYS; HIGH RISK. CATALINA GOETZ RD
--- NOTE | 2016-12-29 14:05 | NUR ---
OXYGEN REMOVED PER CASE MANAGEMENT SPO2 100 ON .21
--- NOTE | 2016-12-29 14:10 | NUR ---
SS NOTE: PER MADELINE FROM [facility], THEY DO NOT HAVE THE MEDICARE CONTRACTED BID FOR [facility]. SHE STATED THAT [facility] (C: [phone]/F: [phone]) HAS THE MEDICARE CONTRACT. I SPOKE WITH RAQUEL FROM [facility]. SHE STATED THAT THEY WILL MOST LIKELY SHIP OUT THE BOLUS FEED TO PT THE NEXT DAY ONCE THEY DETERMINE THAT PT QUALIFIES FOR FEEDINGS.
--- NOTE | 2016-12-29 15:02 | NUR ---
PT COMPLAINED OF PAIN, DILAUDID GIVEN VIA GT, TOLERATED WELL. O2 SAT AT 96. ALL NEEDS MET AT THIS TIME, CALL LIGHT WITHIN REACH, WILL CONTINUE TO MONITOR. Addendum: 12/29/16 at 1519 by Shayy Fuller RN PT ON ROOM AIR WITH O2 SAT 96
--- NOTE | 2016-12-29 15:18 | NUR ---
GTUBE FEEDING STARTED AT 10CC/HR. NO S/S OF RESPIRATORY DISCOMFORT. PT AWAKE LYING ON BED WATCHING TV. ALL NEEDS MET AT THIS TIME. CALL LIGHT WITHIN REACH, WILL CONTINUE TO MONITOR.
--- NOTE | 2016-12-29 15:25 | NUR ---
SS NOTE: I SPOKE WITH JAIMEE FROM [facility] (C: [phone]/F: [phone]) AND SHE STATED THAT PT'S FEEDING AND SUPPLIES WILL BE SENT TO PT'S HOME ON 12/31/16. I SPOKE WITH ALEXANDREPatricia FROM [facility] ([phone]) AND SHE STATED THAT SHE WILL CONTACT PT TODAY TO SEE IF A NURSE CAN COME SEE PT TONIGHT OR TOMORROW MORNING TO PT'S HOME. Addendum: 12/29/16 at 1537 by Mayela Mike SS JAIMEE ALSO STATED THAT SHE WILL CONTACT PT REGARDING HER MEDICARE CO-PAY FOR THE FEEDINGS/SUPPLIES.
[2016-12-29 16:00] VITALS: BP 120/91
--- NOTE | 2016-12-29 16:00 | NUR ---
DISCHARGE INSTRUCTIONS GIVEN, PT VERBALIZED UNDERSTANDING. PT TEACHING ON GTUBE FEEDING AND MEDICATION ADMINISTRATION DONE. PT VERBALIZED UNDERSTANDING. PT GIVEN 8 CANS OF FORMULA, 2 PC OF INNER CANULA AND 2 PISTON SYRINGE. TELE AND ID WRISTBAND REMOVED. NO S/S OF RESPIRATORY DISCOMFORT, VS STABLE. WILL WAIT IN THE ROOM FOR MANAGER GROUP HOME
[2016-12-29] MEDS ORDERED: CLINDAMYCIN HC150 M1 GT (16:01)
[2016-12-29] MEDS ORDERED: AMPICILLIN500 MG PO (16:21)
[2016-12-29] MEDS: CHLORHEXADINE GLUC 2% CLOTH TP SCH (16:35)
[2016-12-29] MEDS: MUPIROCIN 2% OINT 22 GM TUBE TP SCH (16:35)
--- NOTE | 2016-12-29 17:45 | NUR ---
PT LEFT UNIT IN STABLE CONDITION ACCOMPANIED BY SON ON A WHEELCHAIR
--- NOTE | 2016-12-30 15:25 | NUR ---
SS NOTE: PER OLIVIA FROM [facility], THEY SHIPPED OUT PT'S G-TUBE FEEDINGS TODAY AND RECEIVED THE FAXED COPY OF THE SIGNED PHYSICIAN'S ORDER.
== END 2016-12-29 17:45 | disposition home health service (06) | DRG 177 ==
LOC: MED 17:23 → MTU 22:20
PROVIDERS: ADMIT Family Medicine; ATTEND Family Medicine
DX: J15.6 Pneumonia due to other Gram-negative bacteria (principal); I50.43 Acute on chronic combined systolic (congestive) and diastolic (congestive) heart failure; I42.9 Cardiomyopathy, unspecified; J44.0 Chronic obstructive pulmonary disease with (acute) lower respiratory infection; K21.9 Gastro-esophageal reflux disease without esophagitis; J45.909 Unspecified asthma, uncomplicated; E03.9 Hypothyroidism, unspecified; J20.9 Acute bronchitis, unspecified; I48.91 Unspecified atrial fibrillation; M79.7 Fibromyalgia; G43.909 Migraine, unspecified, not intractable, without status migrainosus; R13.10 Dysphagia, unspecified; I34.1 Nonrheumatic mitral (valve) prolapse; I27.2 Other secondary pulmonary hypertension; I11.0 Hypertensive heart disease with heart failure; M54.5 Low back pain; Z53.29 Procedure and treatment not carried out because of patient's decision for other reasons; Z93.1 Gastrostomy status; Z93.0 Tracheostomy status; Z98.890 Other specified postprocedural states; Z90.710 Acquired absence of both cervix and uterus; I25.2 Old myocardial infarction; Z88.6 Allergy status to analgesic agent; Z88.5 Allergy status to narcotic agent; Z88.8 Allergy status to other drugs, medicaments and biological substances; Z91.048 Other nonmedicinal substance allergy status; Z79.899 Other long term (current) drug therapy; Z79.01 Long term (current) use of anticoagulants; Z86.718 Personal history of other venous thrombosis and embolism; Z86.010 Personal history of colon polyps; Z87.11 Personal history of peptic ulcer disease; Z86.711 Personal history of pulmonary embolism; Z82.49 Family history of ischemic heart disease and other diseases of the circulatory system

== ENCOUNTER 2017-08-07 12:44 | Emergency (ER) | payer OTHER ==
[~2017-08-07] VITALS: Ht 162.6 cm; Wt 103.9 kg
[~2017-08-07 12:44] MED LIST changes: -APAP PO; +ATRN INH; -ATROVENT 00.5 MG/3 M INH; -AZTREONAM1 GM IJ; -BENADRYL50 MG PO; -BUTALBITAL PO; -COZAAR50 MG PO; -CYCLOBENZAPRINE10 M7 PO; +DIAZ10TA7 GT/PO; -DILAUDID2 MG PO; -DULCOLAX10 MG RC; -ELIQUIS5 MG PO; +EMLAC TP; +FLONAS NS; -FLONASE NASAL50 MCG NS; +HYDR2TAB6 GT/PO; +ISOS10TA9 GT/PO; -LIPITOR20 MG PO; -LOPRESSOR50 MG PO; -NITRO DUR TD; +PANT40PK PO; -PEPCID20 MG PO; +PRON INH; -PROVENTIL2.5 MG/3 M INH; -REGLAN10 MG PO; +RIVA20TA4 GT/PO; +SYN.075 GT/PO; -SYNTHROID0.075 MG PO; -VALIUM10 MG PO; +VALS160T2 GT/PO; -XARELTO STARTER20 MG PO; -[UNRECOGNIZED DRUG - OTHER] PO
[2017-08-07 13:19] VITALS: BP 154/90
--- NOTE | 2017-08-07 13:30 | NUR ---
Patient ambulated to bed 4. RN evaluating patient at bedside.
--- NOTE | 2017-08-07 13:32 | NUR ---
62F BIB FAMILY C/O MID-CHEST PAIN AND TRACHEAL OPENING PAIN X 1 WEEK. HX: [place], CHF, CHRONIC ANGINA, COPD, MILD ASHTMA, GERD, HYPOTHYROIDISM, RESPIRATORY FAILURE, FIBROMYALGIA, CHRONIC PAIN, G-TUBE, LEFT DEVIATED SEPTUM, TMJ, AFIB, PE'S, DVT'S, MRSA DENIES N/V/D; SKIN IS PINK/WARM/DRY; AAOX4 WITH EVEN AND UNSTEADY GAIT; LUNGS CLEAR BL; HR EVEN AND REGULAR; PATIENT STATES PAIN OF 10/10 AT THIS TIME; PATIENT POSITIONED FOR COMFORT; HOB ELEVATED; BEDRAILS UP X2; BED DOWN. ER MD MADE AWARE OF PT STATUS.
[2017-08-07 14:39] LABS: BASOPHILS # (AUTO) 0.2 K/uL (0.00-0.22); BASOPHILS % (AUTO) 3.6 % (0.0-2.0); EOSINOPHILS # (AUTO) 0.1 K/uL (0-0.4); EOSINOPHILS % (AUTO) 1.3 % (0.0-4.0); HEMATOCRIT 40.2 % (36-48); HEMOGLOBIN 13.2 g/dL (12.0-16.0); LYMPHOCYTES # (AUTO) 1.2 K/uL (2.5-16.5); LYMPHOCYTES % (AUTO) 24.1 % (20.5-51.1); MEAN CORPUSCULAR HEMOGLOBIN 33 pg (27-31); MEAN CORPUSCULAR HGB CONC 33 g/dL (33-37); MEAN CORPUSCULAR VOLUME 99 fL (80-94); MONOCYTES # (AUTO) 0.6 K/uL (0.8-1.0); MONOCYTES % (AUTO) 12.7 % (1.7-9.3); NEUTROPHILS % (AUTO) 58.3 % (42.2-75.2); PLATELET COUNT (AUTO) 203 K/uL (140-450); RED BLOOD CELL COUNT(AUTO) 4.06 MIL/uL (4.20-5.40); RED CELL DISTRIBUTION WIDTH 13.5 % (11.6-13.7); WHITE BLOOD COUNT (AUTO) 5.1 K/uL (4.8-10.8)
[2017-08-07 14:49] LABS: ANION GAP 9.5 (8-16); CARBON DIOXIDE 29.9 mmol/L (21-32); POTASSIUM 3.4 mmol/L (3.5-5.1)
[2017-08-07 14:55] LABS: ALBUMIN 3.8 g/dL (3.4-5.0); TOTAL BILIRUBIN 0.1 mg/dL (0.0-1.0)
[2017-08-07 15:15] LABS: PROTHROMBIN TIME 11.2 secs (10.8-13.4)
[2017-08-07] MEDS ORDERED: HYDROmorphone 1 MG/ML AMP IVP ONE (15:25)
[2017-08-07 15:44] LABS: APPEARANCE,URINE CLEAR (CLEAR); BILIRUBIN,URINE NEGATIVE (NEGATIVE); BLOOD, URINE NEGATIVE (NEGATIVE); COLOR,URINE YELLOW (YELLOW); LEUKOCYTE ESTERASE ,URINE NEGATIVE (NEGATIVE); NITRITE, URINE NEGATIVE (NEGATIVE); PH,URINE 6.5 (5.0-9.0); UGLUCOSE NEGATIVE (NEGATIVE)
[2017-08-07 15:46] VITALS: BP 157/79
--- NOTE | 2017-08-07 15:46 | NUR ---
Patient discharged with BP157/79; DENIES HEADACHE OR DIZINESS; MD MADE AWARE. Written and verbal after care instructions given and explained. Patient verbalized understanding. Ambulatory with steady gait. All questions addressed prior to discharge. Advised to follow up with PMD.
== END 2017-08-07 15:46 | disposition home or self-care (01) ==
LOC: MED 12:44
DX: R05 Cough (principal); R07.9 Chest pain, unspecified; J44.9 Chronic obstructive pulmonary disease, unspecified; K21.9 Gastro-esophageal reflux disease without esophagitis; Z90.89 Acquired absence of other organs; Z88.0 Allergy status to penicillin; Z88.5 Allergy status to narcotic agent; Z88.8 Allergy status to other drugs, medicaments and biological substances
CPT/HCPCS: 36415; 71010; 80053; 81003; 83605; 83880; 84484; 85025; 85610; 85730; 87040; 93005; 96374; 99285; J1170; Q0092

== ENCOUNTER 2018-07-02 12:40 | Inpatient (IN) | payer OTHER ==
[~2018-07-02] VITALS: Ht 162.6 cm; Wt 106.1 kg
--- NOTE | 2018-07-02 12:45 | NUR ---
PT AMBULATES TO BED 11
[2018-07-02 12:46] VITALS: BP 143/84
[2018-07-02] MEDS ORDERED: FURO-570 PO (13:12)
[2018-07-02] MEDS ORDERED: HYDR2TAB6 PO (13:12)
[2018-07-02] MEDS ORDERED: APIX5TAB PO (13:12)
[2018-07-02] MEDS ORDERED: FENT100T TD (13:12)
[2018-07-02] MEDS ORDERED: ATOR10TA PO (13:12)
[2018-07-02] MEDS ORDERED: [UNRECOGNIZED DRUG - CODE] IH (13:12)
[2018-07-02] MEDS ORDERED: NITR0.4T2 SL (13:12)
[2018-07-02] MEDS ORDERED: LOSA100T25 PO (13:12)
[2018-07-02] MEDS ORDERED: ASPI81EC19 PO (13:12)
[2018-07-02] MEDS ORDERED: CARV12.5 PO (13:12)
--- NOTE | 2018-07-02 13:15 | NUR ---
PATIENT PRESENTS TO ED WITH c/o pressure like chest pain radiating to lue and posterior neck x 2 days---constant sob upon laying back and bilateral ankle swelling----mild accessory muscle use noted placed on 3l nc and monitor- SKIN IS PINK/WARM/DRY; AAOX4 WITH EVEN AND STEADY GAIT; LUNGS CLEAR BL; HR EVEN AND REGULAR; PT DENIES ANY FEVER, OR COUGH AT THIS TIME; PATIENT STATES PAIN OF 10/10 AT THIS TIME; VSS; PATIENT POSITIONED FOR COMFORT; HOB ELEVATED; BEDRAILS UP X2; BED DOWN. ER MD MADE AWARE OF PT STATUS.
[2018-07-02 14:04] LABS: BASOPHILS % (AUTO) 0.4 % (0.0-2.0); EOSINOPHILS # (AUTO) 0.1 K/uL (0-0.4); EOSINOPHILS % (AUTO) 2.5 % (0.0-4.0); HEMATOCRIT 33.6 % (36-48); HEMOGLOBIN 11.3 g/dL (12.0-16.0); LYMPHOCYTES # (AUTO) 1.7 K/uL (2.5-16.5); LYMPHOCYTES % (AUTO) 28.1 % (20.5-51.1); MEAN CORPUSCULAR HEMOGLOBIN 33 pg (27-31); MEAN CORPUSCULAR HGB CONC 33 g/dL (33-37); MEAN CORPUSCULAR VOLUME 98.6 fL (80-94); MONOCYTES # (AUTO) 0.5 K/uL (0.8-1.0); MONOCYTES % (AUTO) 8.5 % (1.7-9.3); NEUTROPHILS # (AUTO) 3.7 K/uL (1.8-7.7); NEUTROPHILS % (AUTO) 60.5 % (42.2-75.2); PLATELET COUNT (AUTO) 179 K/uL (140-450); RED BLOOD CELL COUNT(AUTO) 3.41 MIL/uL (4.20-5.40); RED CELL DISTRIBUTION WIDTH 13.6 % (11.6-13.7); WHITE BLOOD COUNT (AUTO) 6.1 K/uL (4.8-10.8)
[2018-07-02 14:25] LABS: PROTHROMBIN TIME 9.9 secs (10.8-13.4)
[2018-07-02 14:28] LABS: ANION GAP 10.2 (8-16); CARBON DIOXIDE 29.5 mmol/L (21-32); POTASSIUM 3.7 mmol/L (3.5-5.1)
[2018-07-02 14:34] LABS: ALBUMIN 3.2 g/dL (3.4-5.0); TOTAL BILIRUBIN 0.3 mg/dL (0.0-1.0)
[2018-07-02] MEDS ORDERED: ZOLPIDEM 5 MG TAB PO PRN (15:10)
[2018-07-02] MEDS ORDERED: ACETAMINOPHEN 325 MG TAB PO PRN (15:10)
[2018-07-02] MEDS ORDERED: LORazepam 2 MG/ML VIAL IM/IVP PRN (15:10)
[2018-07-02] MEDS ORDERED: DOCUSATE SODIUM 100 MG GELCAP PO PRN (15:10)
[2018-07-02 15:45] VITALS: BP 179/98
--- NOTE | 2018-07-02 15:45 | NUR ---
PATIENT ARRIVED ON MST UNIT FROM ER VIA BED/GURNEY. ABLE TO AMBULATE FROM ER BED TO MST BED INDEPENDENTLY USING ROLLATOR. NO DISTRESS NOTED. V/S ELEVATED DUE TO PAIN. RESPIRATIONS EVEN, UNLABORED, ON 3L/MIN VIA NC. REPORTS HAVING CHEST PAIN RADIATING TO BACK OF NECK 07/08, WILL GIVE DILAUDID PER MD ORDERS. AAOX4, CALM, COOPERATIVE, SKIN COLOR APPROPRIATE TO ETHNICITY, WARM TO TOUCH. SKIN IS INTACT. LUNGS CTA ON ALL LOBES. ABDOMEN SOFT. HAS LEFT CHEST MEDIPORT, IVF STARTED PER MD ORDERS. ORIENTED PATIENT TO ROOM AND CALL LIGHT. REVIEWED PLAN OF CARE WITH PATIENT. PATIENT VERBALIZED UNDERSTANDING. SAFETY MEASURES IN PLACE, CALL LIGHT WITHIN REACH. WILL CONTINUE TO MONITOR.
--- NOTE | 2018-07-02 15:49 | NUR ---
Pt transferred to Tele via estella report given to cesario camacho
[2018-07-02] MEDS ORDERED: HYDROmorphone 2 MG TAB PO SCH (16:00)
[2018-07-02 16:11] LABS: FREE T4 (FREE THYROXINE) 0.88 ng/dL (0.76-1.46); MAGNESIUM 1.8 mg/dL (1.8-2.4); PHOSPHORUS 3.3 mg/dL (2.5-4.9); THYROID STIMULATING HORMONE 0.54 uIU/mL (0.34-3.74)
[2018-07-02] MEDS ORDERED: diphenhydrAMINE 50 MG/ML VIAL IVP SCH (16:15)
[2018-07-02] MEDS ORDERED: HYDROmorphone PFS 2 MG/ML SYR IVP SCH (16:15)
[2018-07-02] MEDS: NACL 0.9% 1,000 ML IV SCH (16:19)
--- NOTE | 2018-07-02 17:26 | NUR ---
PATIENT SITTING IN BED SCRATCHING, COMPLAINS OF GENERALIZED ITCHING. BENADRYL IV GIVEN PER MD ORDERS. SAFETY MEASURES IN PLACE, CALL LIGHT WITHIN REACH. WILL CONTINUE TO MONITOR.
[2018-07-02] MEDS ORDERED: NITROGLYCERIN 0.4 MG TAB SL PRN (17:40)
[2018-07-02] MEDS ORDERED: HYDROmorphone 2 MG TAB PO PRN ×2 (17:40→23:30)
[2018-07-02] MEDS ORDERED: fentaNYL 0.1 MG/HR PATCH TD SCH (17:40)
[2018-07-02] MEDS ORDERED: ISOSORBIDE DINITRATE 10 MG TAB PO SCH (19:00)
[2018-07-02] MEDS ORDERED: FUROSEMIDE 40 MG TAB PO SCH (19:00)
--- NOTE | 2018-07-02 19:00 | NUR ---
PATIENT LYING DOWN IN BED SLEEPING, AROUSABLE BY VOICE. NO DISTRESS NOTED. DENIES ANY PAIN AT THIS TIME. SCHEDULED MEDICATIONS DUE GIVEN. SAFETY MEASURES IN PLACE, CALL LIGHT WITHIN REACH. WILL CONTINUE TO MONITOR.
[2018-07-02] MEDS: ALBUTEROL SULFATE/IPRATROPIU 3 ML SOL IH SCH (19:33)
--- NOTE | 2018-07-02 19:39 | NUR ---
GAVE REPORT TO CLINICAL ADMINISTRATIVE COORDINATOR NURSE FOR CONTINUITY OF CARE. PATIENT IN STABLE CONDITION.
--- NOTE | 2018-07-02 19:40 | NUR ---
REPORT RECEIVED FROM AM NURSE. PT IN STABLE CONDITION. AAOX4. INTRODUCED SELF AND BOARD UPDATED. PT CURRENTLY DOING A BREATHING TX. IV SITE PATENT AND INTACT RUNNING NS@60ML/HR THROUGH A LEFT CHEST MEDIPORT. SKIN WARM, DRY, AND INTACT WITH NO OPEN WOUNDS. VS STABLE. PT ON CONTACT PRECAUTION FOR HX OF MDRO OF SPUTUM. NO COMPLAINTS OF PAIN. PT WILL BE NPO AFTER MIDNIGHT. HX OF DVT ON RIGHT ARM, NO BLOOD PRESSURES ON THE RIGHT ARM. BED LOCKED IN LOW POSITION. CALL HA[place]NE WITHIN REACH.
[2018-07-02 20:00] VITALS: BP 124/72
[2018-07-02] MEDS: ONDANSETRON 4 MG/2 ML VIAL IM/IVP PRN ×2 (20:04→20:50)
[2018-07-02] MEDS ORDERED: oxyCODONE/APAP 5/325 MG 1 TAB TAB PO PRN (20:20)
--- NOTE | 2018-07-02 20:50 | NUR ---
ARTHUR, COREG, AND BENADRYL GIVEN. PT TOLERATED WELL. WILL CONTINUE TO MONITOR. Addendum: 07/03/18 at 0257 by Shon Reyes RN PULLED OUT 4MG OR 2 TABLETS OF DILAUDID AND 1 TABLET OF BENADRYL. PT STATES SHE DOES NOT WANT TABLETS DUE TO HAVING A HARD TIME SWALLOWING. WASTED IN PHARMACEUTICAL WASTE AND WITNESSED BY DENNISE CHAN.
[2018-07-02] MEDS: diphenhydrAMINE 50 MG/ML VIAL IVP PRN (20:51)
[2018-07-02] MEDS ORDERED: NON-FORMULARY ITEM (Apixaban (Eliquis) 5 MG) PO SCH (21:00)
[2018-07-02] MEDS: CARVEDILOL 12.5 MG TAB PO SCH (21:00)
--- NOTE | 2018-07-02 21:10 | NUR ---
TALKED TO MD ABOUT SWITCHING DILAUDID AND BENADRYL TO IVP. MD SPOKE TO PT AND EXPLAINED TO HER THAT DILAUDID COULD BE THE REASON FOR HER GI PROBLEMS AND DOES NOT WANT TO GIVE THE MEDICATION TO HER. ALSO ORDERED AN ESOPHAGRAM. PT STATES SHE IS STILL IN PAIN.
--- NOTE | 2018-07-02 22:10 | NUR ---
PT STILL IN PAIN. ASKING FOR PAIN MED AGAIN. OFFERED TYLENOL BUT PT REFUSED.
--- NOTE | 2018-07-02 22:45 | NUR ---
PT STATES SHE IS IN PAIN. TALKED TO MD. MD Pritchett/Eliseo ALCARAZ. REMINDED PT OF WHAT MD SAID. PT STATES SHE WILL TRY TO TOLERATE PAIN.
[2018-07-02] MEDS ORDERED: HYDROmorphone 1 MG/ML AMP IVP PRN (22:55)
[2018-07-03] VITALS: BP 107/71
--- NOTE | 2018-07-03 02:20 | NUR ---
PT STATES SHE IS VERY ITCHY. BENADRYL GIVEN. PT TOLERATED WELL.
[2018-07-03] MEDS: diphenhydrAMINE 50 MG/ML VIAL IVP PRN ×4 (02:24→20:26)
--- NOTE | 2018-07-03 02:45 | NUR ---
PT LOOKS LESS ANXIOUS. BENADRYL WORKING. PT ABLE TO GET TO SLEEP. WILL CONTINUE TO MONITOR.
[2018-07-03 03:56] LABS: APPEARANCE,URINE CLEAR (CLEAR); BILIRUBIN,URINE NEGATIVE (NEGATIVE); BLOOD, URINE NEGATIVE (NEGATIVE); COLOR,URINE OTHER (YELLOW); LEUKOCYTE ESTERASE ,URINE NEGATIVE (NEGATIVE); NITRITE, URINE NEGATIVE (NEGATIVE); UGLUCOSE NEGATIVE (NEGATIVE)
[2018-07-03 04:00] VITALS: BP 115/72
[2018-07-03 04:39] LABS: BARBITURATE, URINE POS. ng/ml (NEG <=200); BENZODIAZEPINE, URINE NEG. ng/mL (NEG <=200); CANNABINOID, URINE NEG. ng/mL (NEG <=50); COCAINE, URINE NEG. ng/mL (NEG <=300); OPIATE, URINE NEG. ng/mL (NEG <=2000); PHENCYCLIDINE SCREEN,URINE NEG. ng/mL (NEG <=25)
--- NOTE | 2018-07-03 05:00 | NUR ---
PT LAYING IN BED TRYING TO SLEEP. HER HANDS AND LEGS ARE SHAKING TRYING TO DEAL WITH THE PAIN. NO S/S OF DISTRESS. WILL CONTINUE TO MONITOR.
[2018-07-03] MEDS: LEVOTHYROXINE 0.075 MG TAB PO SCH (05:30)
[2018-07-03] MEDS: ALBUTEROL SULFATE/IPRATROPIU 3 ML SOL IH SCH ×3 (07:02→20:19)
--- NOTE | 2018-07-03 07:05 | NUR ---
REPORT GIVEN TO AM NURSE AT BEDSIDE. PT IN STABLE CONDITION.
--- NOTE | 2018-07-03 07:06 | NUR ---
REPORT RECEIVED FROM AM NURSE. PT IN STABLE CONDITION. AAOX4. INTRODUCED SELF AND BOARD UPDATED. PT CURRENTLY DOING A BREATHING TX. IV SITE PATENT AND INTACT RUNNING NS @ 60ML/HR THROUGH A LEFT CHEST MEDIPORT. SKIN WARM, DRY, AND INTACT WITH NO OPEN WOUNDS. 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 PATIENT COMPLAINING OF PAIN AT THIS TIME, WILL ASSESS AND MEDICATE ORDERED. HX OF DVT ON RIGHT ARM, NO BLOOD PRESSURES ON THE RIGHT ARM. SAFETY AND ISOLATION PRECAUTIONS IN PLACE, BED LOCKED IN LOW POSITION. CALL LIGHT WITHIN REACH, WILL CONTINUE TO MONITOR PATIENT.
--- NOTE | 2018-07-03 07:55 | NUR ---
VITAL SIGNS STABLE, PATIENT C/O ITCHINESS, REQUESTED BENADRYL, BENADRYL IVP GIVEN. PATIENT TOLERATED IT WELL AND REQUESTED OF PAIN MEDICATION. DOCTORS DOING ROUNDING, INFORMED DR. BAILEY, HE STATED HE WILL FORWARD PATIENT'S REQUEST FOR IVP DILAUDID TO DR. CROSS, RN VERBALIZED UNDERSTANDING.
[2018-07-03 08:00] VITALS: BP 115/73
--- NOTE | 2018-07-03 08:20 | NUR ---
PATIENT C/O ABOUT CARE AND NOT RECEIVING ADEQUATE PAIN MANAGEMENT THROUGH THE NIGHT. PATIENT RESTLESS AND HAD TEARS IN HER EYES. RN INFORMED HER THAT MESSAGE WILL BE PASSED ON TO THE DOCTORS AND BE FOLLOWED UP. PATIENT VERBALIZED UNDERSTANDING AND REQUESTED FOR DILAUDID IVP OR FENTANYL IV IF POSSIBLE.
[2018-07-03] MEDS ORDERED: FUROSEMIDE 40 MG TAB PO SCH (09:00)
[2018-07-03] MEDS ORDERED: APIXABAN 2.5 MG TAB PO SCH (09:00)
[2018-07-03] MEDS ORDERED: PANTOPRAZOLE 40 MG TABEC PO SCH (09:00)
[2018-07-03] MEDS ORDERED: NON-FORMULARY ITEM (Pantoprazole Sodium (Protonix) 40 MG) PO SCH (09:00)
[2018-07-03] MEDS ORDERED: ECOTRIN 81 MG TABEC PO SCH (09:00)
[2018-07-03] MEDS ORDERED: ASPIRIN PO SCH (09:00)
[2018-07-03] MEDS ORDERED: NON-FORMULARY ITEM (Losartan Potassium 100 MG) PO SCH (09:00)
[2018-07-03] MEDS: NACL 0.9% 1,000 ML IV SCH (09:08)
[2018-07-03] MEDS ORDERED: FUROSEMIDE 40 MG/4 ML VIAL IVP SCH (09:13)
[2018-07-03] MEDS ORDERED: PANTOPRAZOLE 40 MG INJ VIAL IVP SCH (09:14)
--- NOTE | 2018-07-03 09:15 | NUR ---
PATIENT REQUESTING FOR IVP DILAUDID. SHE ONLY HAS 2MG DILAUDID P.O ON EM[facility]. SPOKE TO DR. CROSS ABOUT PATIENT'S REQUEST. HE STATED THAT THERE IS A SHORTAGE FOR IVP DILAUDID, ONLY USED FOR SURGERY, ICU, OR EMERGENCIES. PATIENT WAS ANGRY, INFORMED DR. CROSS AND REQUESTED THAT HE COME SPEAK TO THE PATIENT. DR CROSS WENT AND SPOKE TO PATIENT, REINFORCED INFORMATION ABOUT SHORTAGE AND OFFERED PATIENT OPTION OF NG TUBE SINCE PATIENT STATED THAT SHE HAD DIFFICULTY SWALLOWING PILLS. PATIENT REFUSED OFFER AND DECIDED TO TRY DILAUDID PO FOR HER 10/10 PAIN. WILL ASSESS AND MEDICATE.
[2018-07-03] MEDS: HYDROmorphone 2 MG TAB PO PRN ×2 (09:39→15:51)
--- NOTE | 2018-07-03 09:39 | NUR ---
ABOUT TO MEDICATE PATIENT WITH 2MG DILAUDID PO. PATIENT STATED THAT SHE TAKES 4MG DILAUDID PO AT HOME PRN Q6HR. "2MG ISN'T GONNA WORK FOR ME, I MIGHT WELL NOT TAKE IT". PATIENT REFUSED MEDICATION. RN WENT AND SPOKE TO DR. CROSS ABOUT PATIENT'S COMPLAINTS. NEW ORDERS IN FOR 4MG DILAUDID PO Q6HR. PATIENT INFORMED. PATIENT AGREED TO TAKE MEDICATION. PATIENT CURRENTLY GETTING US ABDOMEN COMPLETE. WILL AWAIT FOR RESULTS. PATIENT TOLERATED MEDICATION WELL. WILL CONTINUE TO MONITOR PATIENT.
[2018-07-03] MEDS: ASPIRIN 81 MG TAB.CHEW PO SCH (10:31)
[2018-07-03] MEDS: CARVEDILOL 12.5 MG TAB PO SCH ×2 (10:32→20:26)
[2018-07-03] MEDS: ATORVASTATIN 20 MG TAB PO SCH (10:33)
[2018-07-03] MEDS: ISOSORBIDE DINITRATE 10 MG TAB PO SCH ×3 (10:33→16:41)
[2018-07-03] MEDS: LOSARTAN 50 MG TAB PO SCH (10:33)
--- NOTE | 2018-07-03 10:33 | NUR ---
ORDERED MEDICATIONS CRUSHED AND GIVEN WITH APPLESAUCE REQUESTED BY PATIENT. PATIENT TOLERATED IT. PATIENT REQUESTED FOR COFFEE AND YOGURT SINCE SHE WAS ONLY ABLE TO EAT THE YOGURT FROM HER BREAKFAST TRAY. CALLED DIETARY FOR YOGURT. YOGURT GIVEN. PATIENT WAS ABLE TO FINISH YOGURT AND COFFEE WITH MEDICATIONS. WILL CONTINUE TO MONITOR PATIENT.
[2018-07-03] MEDS ORDERED: FLUTICASONE NASAL 50 MCG/ACTUATION 16 GM BTL NS PRN (11:50)
[2018-07-03 12:00] VITALS: BP 135/77
[2018-07-03 13:35] LABS: CHOL/HDL RATIO 3.4 (1-4.5)
[2018-07-03] MEDS ORDERED: IPRATROPIUM 0.02% 0.5 MG/2.5 ML NEBU INH PRN (13:40)
--- NOTE | 2018-07-03 13:53 | NUR ---
PATIENT'S LUNCH WAS NOT AGREEABLE, DISCUSSED OPTIONS, PATIENT REQUESTED FOR ENSURE. FORWARDED PATIENT'S REQUEST TO DR. CROSS, NEW ORDER IN FOR ENSURE WITH PATIENT'S CARDIAC DIET, CALLED DIETARY. ENSURE BROUGHT, PATIENT STATED SHE WILL TRY IN A BIT. RN VERBALIZED UNDERSTANDING.
[2018-07-03] MEDS ORDERED: BUDESONIDE 0.5 MG/2 ML NEBU INH SCH (13:57)
--- NOTE | 2018-07-03 13:57 | NUR ---
PATIENT C/O ABOUT NOT HAVING HER BUDESONIDE INH, SPOKE TO DR. CROSS ABOUT HER HOME MEDICATIONS. NEW ORDERS IN. PATIENT INFORMED ABOUT IT. PATIENT AGREEABLE. WILL CONTINUE TO MONITOR PATIENT.
--- NOTE | 2018-07-03 15:05 | NUR ---
PATIENT STATED THAT SHE HAD CHEST PAIN, PATIENT REQUESTED FOR PAIN MEDICATION, DILAUDID. INFORMED HER IT'S NOT DUE UNTIL 1538, NITROSTAT OFFERED, PATIENT STATED "I'LL TAKE IT, BUT IT WON'T WORK". MEDICATION GIVEN. PATIENT TOLERATED IT. PATIENT CURRENTLY GETTING US OF VENOUS BILATERAL EXTREMITIES. WILL AWAIT FOR RESULTS.
--- NOTE | 2018-07-03 15:51 | NUR ---
PATIENT C/O PAIN. PATIENT MEDICATED WITH APPROPRIATE PAIN SCALE. PATIENT TOLERATED IT WELL. NO SIGNS OF DISTRESS OR SOB AT THE MOMENT. PATIENT STATED THAT HER CHEST PAIN WAS BETTER. WILL CONTINUE TO MONITOR PATIENT.
[2018-07-03 16:00] VITALS: BP 142/84
--- NOTE | 2018-07-03 16:10 | NUR ---
PATIENT REQUESTING FOR SOME SNACKS, ICE CREAM AND JELLO BECAUSE HER APPETITE HAS BEEN POOR DUE TO HER PAIN. CALLED DIETARY, ICE CREAM AND JELLO GIVEN. PATIENT TOLERATED IT WELL. NO SIGNS OF DISTRESS OR CHEST PAIN NOTED. WILL CONTINUE TO MONITOR PATIENT.
[2018-07-03] MEDS: FLUTICASONE NASAL 50 MCG/ACTUATION 16 GM BTL NS PRN (16:41)
--- NOTE | 2018-07-03 17:10 | NUR ---
ORDERED MEDICATIONS GIVEN. PATIENT TOLERATED IT WELL. DR. YUEN IN TO SEE THE PATIENT. WILL WAIT FOR HIS NEW ORDERS.
--- NOTE | 2018-07-03 17:30 | NUR ---
SPOKE WITH DR. CROSS ABOUT THE 1356 PULMICORT ORDER AND ON HIS Shoobs SCREEN IT SHOWED THAT THE ORDER WAS D\C ONLY THE 1899 ORDER WAS STILL IN EM[facility]
--- NOTE | 2018-07-03 19:20 | NUR ---
REPORT GIVEN TO PAPER FINISHER NURSE AT BEDSIDE FOR CONTINUITY OF CARE. PATIENT IN STABLE CONDITION.
--- NOTE | 2018-07-03 19:21 | NUR ---
REPORT RECEIVED FROM DAY SHIFT NURSE DESTINEY-RN AT BEDSIDE. PT IN STABLE CONDITION. AAOX4. INTRODUCED SELF AND BOARD UPDATED. PT CURRENTLY DOING A BREATHING TX. IV SITE PATENT AND INTACT RUNNING NS @ 60ML/HR THROUGH A LEFT CHEST MEDIPORT. SKIN WARM, DRY, AND INTACT WITH NO OPEN WOUNDS. 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 HX OF DVT ON RIGHT ARM, NO BLOOD PRESSURES ON THE RIGHT ARM. DISCUSSED PLAN OF CARE AND PT VERBALIZED UNDERSTANDING. SAFETY AND ISOLATION PRECAUTIONS IN PLACE, BED LOCKED IN LOW POSITION. CALL LIGHT WITHIN REACH, WILL CONTINUE TO MONITOR PATIENT.
[2018-07-03 20:00] VITALS: BP 139/78
--- NOTE | 2018-07-03 20:00 | NUR ---
VITAL SIGNS TAKEN AND TOLERATED WELL. NO S/S OF RESPIRATORY DISTRESS OR DISCOMFORT NOTED AT THIS TIME. WILL CONTINUE TO MONITOR.
[2018-07-03] MEDS: BUDESONIDE 0.5 MG/2 ML NEBU INH SCH (20:19)
[2018-07-03] MEDS: AMITRIPTYLINE 10 MG TAB PO SCH (20:27)
--- NOTE | 2018-07-03 20:30 | NUR ---
SCHEDULED MEDICATION GIVEN AND TOLERATED WELL. PT REQUESTED PILLS BE CRUSHED AND TAKEN WITH SODA. NO S/S OF RESPIRATORY DISTRESS OR DISCOMFORT NOTED AT THIS TIME. WILL CONTINUE TO MONITOR.
--- NOTE | 2018-07-03 20:30 | NUR ---
PT ALSO REQUESTED BENADRYL FOR ITCHINESS. MEDICATION GIVEN IVP AND TOLERATED WELL. NO S/S OF RESPIRATORY DISTRESS OR DISCOMFORT NOTED AT THIS TIME. WILL CONTINUE TO MONITOR.
--- NOTE | 2018-07-03 22:00 | NUR ---
PT RESTING IN BED PLAYING WITH IPAD. NO S/S OF RESPIRATORY DISTRESS OR DISCOMFORT NOTED AT THIS TIME. WILL CONTINUE TO MONITOR.
[2018-07-04] VITALS: BP 102/55
--- NOTE | 2018-07-04 | NUR ---
VITAL SIGNS TAKEN AND TOLERATED WELL. NO S/S OF RESPIRATORY DISTRESS OR DISCOMFORT NOTED AT THIS TIME. WILL CONTINUE TO MONITOR.
[2018-07-04] MEDS: NACL 0.9% 1,000 ML IV SCH ×2 (00:50→18:40)
--- NOTE | 2018-07-04 00:50 | NUR ---
NEW BAG OF IVF HUNG. PT TOLERATED WELL. NO S/S OF RESPIRATORY DISTRESS OR DISCOMFORT NOTED AT THIS TIME. WILL CONTINUE TO MONITOR.
--- NOTE | 2018-07-04 02:00 | NUR ---
PT RESTING IN BED PLAYING WITH IPAD. NO S/S OF RESPIRATORY DISTRESS OR DISCOMFORT NOTED AT THIS TIME. WILL CONTINUE TO MONITOR.
[2018-07-04] MEDS: diphenhydrAMINE 50 MG/ML VIAL IVP PRN ×4 (02:32→21:37)
[2018-07-04 04:00] VITALS: BP 124/74
--- NOTE | 2018-07-04 04:00 | NUR ---
VITAL SIGNS TAKEN AND TOLERATED WELL. NO S/S OF RESPIRATORY DISTRESS OR DISCOMFORT NOTED AT THIS TIME. WILL CONTINUE TO MONITOR.
[2018-07-04] MEDS: HYDROmorphone 2 MG TAB PO PRN ×3 (06:01→18:41)
--- NOTE | 2018-07-04 06:06 | NUR ---
PT C/O FLANK PAIN "ALL NIGHT" HOWEVER DID NOT WANT TO SAY BECAUSE SHE "DIDN'T WANT TO COMPLAIN." MEDICATED WITH DILAUDID 4MG. INSTRUCTED PT TO LET DR KNOW WHEN HE MAKES HIS ROUNDS AND THAT I WOULD ALSO CALL THE DR. PT TOLERATED WELL. NO S/S OF RESPIRATORY DISTRESS OR DISCOMFORT NOTED AT THIS TIME. WILL CONTINUE TO MONITOR.
[2018-07-04] MEDS: ALBUTEROL SULFATE/IPRATROPIU 3 ML SOL IH SCH ×3 (06:48→19:13)
[2018-07-04] MEDS: BUDESONIDE 0.5 MG/2 ML NEBU INH SCH ×2 (06:56→19:13)
[2018-07-04] MEDS: LEVOTHYROXINE 0.075 MG TAB PO SCH (07:07)
[2018-07-04 07:22] LABS: BASOPHILS % (AUTO) 0.8 % (0.0-2.0); EOSINOPHILS # (AUTO) 0.1 K/uL (0-0.4); EOSINOPHILS % (AUTO) 2.8 % (0.0-4.0); HEMATOCRIT 33.7 % (36-48); HEMOGLOBIN 11.3 g/dL (12.0-16.0); LYMPHOCYTES # (AUTO) 1.4 K/uL (2.5-16.5); LYMPHOCYTES % (AUTO) 28.1 % (20.5-51.1); MEAN CORPUSCULAR HEMOGLOBIN 33 pg (27-31); MEAN CORPUSCULAR HGB CONC 34 g/dL (33-37); MEAN CORPUSCULAR VOLUME 98.7 fL (80-94); MONOCYTES # (AUTO) 0.6 K/uL (0.8-1.0); MONOCYTES % (AUTO) 12.1 % (1.7-9.3); NEUTROPHILS # (AUTO) 2.7 K/uL (1.8-7.7); NEUTROPHILS % (AUTO) 56.2 % (42.2-75.2); PLATELET COUNT (AUTO) 162 K/uL (140-450); RED BLOOD CELL COUNT(AUTO) 3.41 MIL/uL (4.20-5.40); RED CELL DISTRIBUTION WIDTH 13.4 % (11.6-13.7); WHITE BLOOD COUNT (AUTO) 4.9 K/uL (4.8-10.8)
[2018-07-04 07:25] LABS: ANION GAP 11.9 (8-16); CARBON DIOXIDE 29.9 mmol/L (21-32); CREATININE 1.1 mg/dL (0.6-1.3); POTASSIUM 3.8 mmol/L (3.5-5.1)
--- NOTE | 2018-07-04 07:45 | NUR ---
RECEIVED ON BED AAOX4. NO SOB NOTED. NO C/O PAIN AT THIS TIME. WITH LEFT CHEST MEDIPORT PATENT AND INTACT. CHEST DIMINISHED AIR ENTRY TO THE BASES. ABDOMEN SOFT, BOWEL SOUNDS PRESENT. NO EDEMA NOTED. INSTRUCTED PT TO CALL FOR ASSISTANCE, CALL LIGHT WITHIN REACH. PT VERBALIZED UNDERSTANDING.
--- NOTE | 2018-07-04 07:47 | NUR ---
ENDORSED PT CARE TO DAY SHIFT NURSE THIERRY FOR CONTINUITY OF CARE.
[2018-07-04 07:51] LABS: MAGNESIUM 1.9 mg/dL (1.8-2.4); PHOSPHORUS 3.9 mg/dL (2.5-4.9)
[2018-07-04 08:00] VITALS: BP 138/85
[2018-07-04] MEDS: ISOSORBIDE DINITRATE 10 MG TAB PO SCH ×3 (09:00→18:41)
[2018-07-04] MEDS: CARVEDILOL 12.5 MG TAB PO SCH ×2 (09:00→20:59)
[2018-07-04] MEDS: FLUTICASONE NASAL 50 MCG/ACTUATION 16 GM BTL NS PRN (09:03)
[2018-07-04] MEDS: ASPIRIN 81 MG TAB.CHEW PO SCH ×2 (09:04→10:13)
[2018-07-04] MEDS: ATORVASTATIN 20 MG TAB PO SCH (09:04)
[2018-07-04] MEDS: SENNA 8.6 MG TAB PO SCH ×3 (09:04→18:41)
[2018-07-04] MEDS: LOSARTAN 50 MG TAB PO SCH (09:05)
[2018-07-04] MEDS: FUROSEMIDE 40 MG/4 ML VIAL IVP SCH (09:05)
[2018-07-04] MEDS: PANTOPRAZOLE 40 MG INJ VIAL IVP SCH (09:12)
--- NOTE | 2018-07-04 10:00 | NUR ---
BELLA FROM [facility] CALLED AND STATED PT WILL BE PICKED UP AROUND 1030 FOR ESOPHAGRAM. PT'S LAST ORAL INTAKE WAS BREAKFAST AND BELLA STATED THAT RADIOLOGIST SAID IT IS OKAY.
[2018-07-04 10:22] LABS: AMYLASE 54 U/L (25-115); LIPASE 89 U/L (73-393)
--- NOTE | 2018-07-04 10:40 | NUR ---
PT WHEELED TO [facility] DEPT IN STABLE CONDITION.
--- NOTE | 2018-07-04 11:20 | NUR ---
PT BACK FROM [facility] IN STABLE CONDITION.
[2018-07-04 12:00] VITALS: BP 123/64
--- NOTE | 2018-07-04 14:29 | NUR ---
Clinical review faxed to [facility] at [phone]
[2018-07-04] MEDS ORDERED: MAGNESIUM CITRATE 300 ML BTL PO SCH (15:26)
--- NOTE | 2018-07-04 15:49 | NUR ---
07/04/18 RD INITIAL ASSESSMENT COMPLETED PLEASE REFER TO NUTRITION ASSESSMENT UNDER CARE ACTIVITY FOR ESTIMATED NUTRITIONAL NEEDS. 1. CONTINUE FULL LIQUID DIET, ENSURE TID WITH MEALS TOLERATED -ADEQUATE TO MEET PT NUTRITIONAL NEEDS -PT REQUEST FULL LIQUID DIET D/T SWALLOWING ISSUES 2. ENCOURAGE INCREASED PO INTAKE 3. RD TO FOLLOW-UP 2-3 DAYS, HIGH RISK CATALINA GOETZ RD
[2018-07-04 16:00] VITALS: BP 124/71
--- NOTE | 2018-07-04 19:00 | NUR ---
PT AWAKE, NO SOB NOTED. NO COMPLAINTS MADE. ENDORSED TO NEXT SHIFT NURSE FOR CONTINUITY OF CARE.
--- NOTE | 2018-07-04 19:01 | NUR ---
RECEIVED REPORT FROM DAY SHIFT RN FOR CONTINUITY OF CARE. PT IS A/OX4, ON ROOM AIR. PT IS ABLE TO MAKE NEEDS KNOWN, ABLE TO FOLLOW COMMANDS. RESPIRATIONS EVEN AND UNLABORED AT THE MOMENT. PT SKIN IS INTACT. PT HAS MEDIPORT TO LEFT CHEST, ASYMPTOMATIC, INTACT AND PATENT. DISCUSSED PLAN OF CARE WITH PT AND FAMILY, FAMILY VERBALIZED UNDERSTANDING. VITAL SIGNS WITHIN NORMAL LIMITS. PT STABLE, NO SIGNS OF DISTRESS NOTED AT THIS TIME. BED IN LOWEST POSITION, BED ALARM ON. CALL LIGHT WITHIN REACH, WILL CONTINUE TO MONITOR.
[2018-07-04 20:00] VITALS: BP_SYST 116; BP_SYST 122; BP_DIAS 68; BP_DIAS 75
[2018-07-04] MEDS: AMITRIPTYLINE 10 MG TAB PO SCH (20:59)
--- NOTE | 2018-07-04 21:01 | NUR ---
ADMINISTERED SCHEDULED MEDICATIONS, PT TOLERATED WELL.
--- NOTE | 2018-07-04 23:15 | NUR ---
PT STABLE, NO SIGNS OF DISTRESS NOTED AT THIS TIME. BED IN LOWEST POSITION, BED ALARM ON. CALL LIGHT WITHIN REACH, WILL CONTINUE TO MONITOR.
[2018-07-05] VITALS: BP 122/75
--- NOTE | 2018-07-05 | NUR ---
VITAL SIGNS WITHIN NORMAL LIMITS. PT STABLE, NO SIGNS OF DISTRESS NOTED AT THIS TIME. BED IN LOWEST POSITION, BED ALARM ON. CALL LIGHT WITHIN REACH, WILL CONTINUE TO MONITOR.
--- NOTE | 2018-07-05 01:15 | NUR ---
PT C/O OF NOT BEING ABLE TO SLEEP AND REQUESTS SLEEPING PILL. ADMINISTERED AMBIEN, PT STATED HAVING TROUBLE SWALLOWING PILL BUT SHE WAS ABLE TO SWALLOW IT.
--- NOTE | 2018-07-05 02:50 | NUR ---
PT RESTING, STABLE, NO SIGNS OF DISTRESS NOTED AT THIS TIME. BED IN LOWEST POSITION, BED ALARM ON. CALL LIGHT WITHIN REACH, WILL CONTINUE TO MONITOR.
[2018-07-05] MEDS: diphenhydrAMINE 50 MG/ML VIAL IVP PRN ×2 (03:37→10:15)
--- NOTE | 2018-07-05 03:38 | NUR ---
PT C/O ITCHINESS AND REQUESTS BENADRYL. ADMINISTERED BENADRYL ORDERED, PT TOLERATED WELL.
[2018-07-05 04:00] VITALS: BP 103/59
[2018-07-05] MEDS: ALBUTEROL SULFATE/IPRATROPIU 3 ML SOL IH SCH ×2 (06:31→13:00)
[2018-07-05] MEDS: BUDESONIDE 0.5 MG/2 ML NEBU INH SCH (06:40)
[2018-07-05] MEDS: LEVOTHYROXINE 0.075 MG TAB PO SCH (07:01)
[2018-07-05 07:20] LABS: BASOPHILS % (AUTO) 0.7 % (0.0-2.0); EOSINOPHILS # (AUTO) 0.2 K/uL (0-0.4); EOSINOPHILS % (AUTO) 3.8 % (0.0-4.0); HEMATOCRIT 34.8 % (36-48); HEMOGLOBIN 11.7 g/dL (12.0-16.0); LYMPHOCYTES # (AUTO) 1.8 K/uL (2.5-16.5); LYMPHOCYTES % (AUTO) 36.4 % (20.5-51.1); MEAN CORPUSCULAR HEMOGLOBIN 33 pg (27-31); MEAN CORPUSCULAR HGB CONC 34 g/dL (33-37); MEAN CORPUSCULAR VOLUME 98.2 fL (80-94); MONOCYTES # (AUTO) 0.5 K/uL (0.8-1.0); MONOCYTES % (AUTO) 10.7 % (1.7-9.3); NEUTROPHILS # (AUTO) 2.4 K/uL (1.8-7.7); NEUTROPHILS % (AUTO) 48.4 % (42.2-75.2); PLATELET COUNT (AUTO) 171 K/uL (140-450); RED BLOOD CELL COUNT(AUTO) 3.54 MIL/uL (4.20-5.40); RED CELL DISTRIBUTION WIDTH 13.1 % (11.6-13.7); WHITE BLOOD COUNT (AUTO) 4.9 K/uL (4.8-10.8)
--- NOTE | 2018-07-05 07:25 | NUR ---
RECEIVED BEDSIDE REPORT FROM DESIGN STUDIO CONSULTANT NURSE CHRISTEN PT AWAKE IN BED, NO SIGNS OF ACUTE DISTRESS, HAD DIFFICULTY SPEAKING WHEN ASKING QUESTIONS, MEDI PORT ON LEFT SIDE, UPDATED BOARD, EXPLAINED PLAN OF CARE, WILL TAKE V/S AND GIVE DUE MEDICATIONS.
--- NOTE | 2018-07-05 07:25 | NUR ---
ENDORSED PT TO DAY SHIFT RN FOR CONTINUITY OF CARE. PT IN STABLE CONDITION.
[2018-07-05 08:00] VITALS: BP 125/74
[2018-07-05 08:04] LABS: MAGNESIUM 2.4 mg/dL (1.8-2.4); PHOSPHORUS 3.4 mg/dL (2.5-4.9)
--- NOTE | 2018-07-05 08:33 | NUR ---
CALL FROM DR TYLER, ORDERS TO MAKER PT NPO FOR LEXISCAN AT 1000. WILL PUT IN ORDERS.
[2018-07-05 08:36] LABS: ANION GAP 12.2 (8-16); CARBON DIOXIDE 29.5 mmol/L (21-32); CREATININE 0.9 mg/dL (0.6-1.3); POTASSIUM 3.7 mmol/L (3.5-5.1)
[2018-07-05] MEDS: SENNA 8.6 MG TAB PO SCH ×2 (08:47→13:00)
[2018-07-05] MEDS: PANTOPRAZOLE 40 MG INJ VIAL IVP SCH (08:48)
[2018-07-05] MEDS: HYDROmorphone 2 MG TAB PO PRN (08:48)
[2018-07-05] MEDS: LOSARTAN 50 MG TAB PO SCH (08:48)
--- NOTE | 2018-07-05 08:48 | NUR ---
PT C/O PAIN WILL MEDICATE ACCORDING TO DRS ORDER.
[2018-07-05] MEDS: ATORVASTATIN 20 MG TAB PO SCH (08:49)
[2018-07-05] MEDS: ISOSORBIDE DINITRATE 10 MG TAB PO SCH ×2 (08:49→13:00)
[2018-07-05] MEDS: NACL 0.9% 1,000 ML IV SCH (08:50)
[2018-07-05] MEDS: CARVEDILOL 12.5 MG TAB PO SCH (08:50)
[2018-07-05] MEDS: ASPIRIN 81 MG TAB.CHEW PO SCH (08:50)
[2018-07-05] MEDS: FUROSEMIDE 40 MG/4 ML VIAL IVP SCH (08:50)
--- NOTE | 2018-07-05 09:30 | NUR ---
PT C/O OF ITCHING WILL MEDICATE ACCORDING TO ALEXANDRA CHRISTENSEN.
--- NOTE | 2018-07-05 10:00 | NUR ---
PT STATED "I CANT HAVE FENTANYL AND VERSED FOR ANY PROCEDURE, I NEED SOMETHING STRONGER, IT WONT WORK I FEEL EVERYTHING". CALLED OR SPOKE WITH [facility], CONFIRMED THESE MEDICATIONS ARE USED, CALLED DR KNIGHT. DR KNIGHT STATED "CANCELL PROCEDURE AND SEND HER HOME". NOTIFIED PT PT STATED "OKAY". WILL PUT IN ORDERS.
--- NOTE | 2018-07-05 11:45 | NUR ---
PT AMBULATED HALF WAY DOWN COSTELLO WITH STEADY GAIT, FELT SOB AND ASKED TO WALK BACK TO ROOM. HELPED BACK INTO BED, V/S WITHIN PTS BASELINE.
--- NOTE | 2018-07-05 11:55 | NUR ---
FAXED CONCURRENT REVIEW TO [facility] [phone] PHONE FRANCIS [phone] GAVE VERBAL REPORT ALSO TO FRANCIS.
[2018-07-05 12:00] VITALS: BP 114/74
[2018-07-05] MEDS ORDERED: PHEN30SP10 MM (12:13)
--- NOTE | 2018-07-05 13:00 | NUR ---
PT STATES "I DONT NEED MEDICATION I NEED TO EAT" WILL HOLD MEDICATIONS AND WORK ON D/C PAPERWORK.
[2018-07-05 13:17] VITALS: BP 125/74
[2018-07-05] MEDS ORDERED: RANEX500 PO (15:16)
--- NOTE | 2018-07-05 15:16 | NUR ---
D/C STEWART NEEDLE IN MEDI-PORT. CUT WRIST BANDS, PT SIGNED D/C PAPER. PT STABLE.
== END 2018-07-05 15:16 | disposition home or self-care (01) | DRG 392 ==
LOC: MED 12:40 → MTU 15:07
PROVIDERS: ADMIT General Practice; ATTEND General Practice
DX: K21.9 Gastro-esophageal reflux disease without esophagitis (principal); E44.0 Moderate protein-calorie malnutrition; D68.9 Coagulation defect, unspecified; Z68.41 Body mass index [BMI] 40.0-44.9, adult; I50.9 Heart failure, unspecified; G89.4 Chronic pain syndrome; I11.0 Hypertensive heart disease with heart failure; I48.91 Unspecified atrial fibrillation; J44.9 Chronic obstructive pulmonary disease, unspecified; M79.7 Fibromyalgia; R13.10 Dysphagia, unspecified; E03.9 Hypothyroidism, unspecified; E66.01 Morbid (severe) obesity due to excess calories; I25.119 Atherosclerotic heart disease of native coronary artery with unspecified angina pectoris; D63.8 Anemia in other chronic diseases classified elsewhere; Z90.710 Acquired absence of both cervix and uterus; Z86.718 Personal history of other venous thrombosis and embolism; Z88.5 Allergy status to narcotic agent; Z88.0 Allergy status to penicillin; Z88.8 Allergy status to other drugs, medicaments and biological substances; Z79.82 Long term (current) use of aspirin; Z79.899 Other long term (current) drug therapy; Z86.711 Personal history of pulmonary embolism; Z90.89 Acquired absence of other organs; Z82.49 Family history of ischemic heart disease and other diseases of the circulatory system
CPT/HCPCS: 36415; 71045; 74220; 76700; 80048; 80053; 80305; 81003; 82150; 82550; 83036; 83690; 83735; 83880; 84100; 84134; 84439; 84443; 84484; 85025; 85610; 85730; 87081; 93005; 93970; 93971; 94640; 99285; C9113; J1170; J1200; J1940; J2405; J7030; J7620; J7626; Q0092; Q0163